=== PATIENT | female | born 1985 | race African-American/Black ===

== ENCOUNTER 2016-09-23 18:10 | Emergency (ER) | payer MEDICAID ==
[2016-09-23 18:41] VITALS: BP 113/77
--- NOTE | 2016-09-23 19:16 | UC ---
Abdominal Pain Female HPI - HPI Summary HPI Summary: The patient comes in today for: 1. Abdominal pain: Onset: One week. Palliative/provocative: Sexual activity makes it worse. Rest makes it better. Quality: Ache pain. Region: Epigastric. Severity: 8/10 but she looks more like 5/10 Time: Comes and goes. Associated symptoms: Vaginal discharge: Present. Previous "bacterial infection" causing the same symptoms: This was 10 months. She was treated with metronidazole "2 pills a day for 7 days." This got rid of the "infection." Fevers: None. Dysuria: None. Hematuria: None. Urinary frequency: None. Urinary urgency: None. * - History of Current Complaint Chief Complaint: UCGU Stated Complaint: ABDOMINAL PAIN Time Seen by Provider: 09/23/16 19:08 Hx Obtained From: Patient, Family/Field Sales Engineer Hx Last Menstrual Period: 09/09/16 ?: No Allergies/Adverse Reactions: Allergies Allergy/AdvReac Type Severity Reaction Status Date / Time Shellfish Allergy Allergy Intermediate Hives/Diff. Verified 09/23/16 18:41 Breathing/I tching Home Medications: Home Medications Ibuprofen [Ibuprofen 200 MG] 800 mg PO PRN 09/23/16 [History] PMH/Surg Hx/FS Hx/Imm Hx Previously Healthy: Yes Endocrine History Of: Denies: Diabetes, Thyroid Disease, Hyperthyroidism, Hypothyroidism, Dyslipidemia Cardiovascular History Of: Denies: Cardiac Disorders, Hypertension, Pacemaker/ICD, Myocardial Infarction , Congestive Heart Failure, Atrial Fibrillation, Deep Vein Thrombosis, Bleeding Disorders Respiratory History Of: Denies: COPD, Asthma, Bronchitis, Pneumonia, Pulmonary Embolism GI/ History Of: Denies: Gastroesophageal Reflux, Ulcer, Gastrointestinal Bleed, Gall Bladder Disease, Kidney Stones, Diverticulitis, Renal Disease, Urosepsis Neurological History Of: Denies: TIA, CVA, Dementia, Seizures, Migraine Psychological History Of: Denies: Anxiety, Depression, Bipolar Disorder, Schizophrenia, Post Traumatic Stress Disorder Cancer History Of: Denies: Lung Cancer, Colorectal Cancer, Breast Cancer, Prostate Cancer, Cervical Cancer Other History Of: Negative For: HIV, Hepatitis B, Hepatitis C, Anticoagulant Therapy - Surgical History Surgical History: None - Family History Known Family History: Positive: Hypertension Negative: Cardiac Disease - Social History Occupation: Unemployed Alcohol Use: None Substance Use Type: None Smoking Status (MU): Never Smoked Tobacco Review of Systems Constitutional: Negative Skin: Negative Eyes: Negative ENT: Negative Respiratory: Negative Cardiovascular: Negative Gastrointestinal: Abdominal Pain Genitourinary: Negative All Other Systems Reviewed And Are Negative: Yes Physical Exam Triage Information Reviewed: Yes Appearance: Well-Appearing, No Pain Distress, Well-Nourished Vital Signs: Initial Vital Signs Temp 99.6 F 09/23/16 18:34 Pulse 86 09/23/16 18:34 Resp 16 09/23/16 18:34 BP 113/77 09/23/16 18:34 Pulse Ox 100 09/23/16 18:34 Vital Signs Reviewed: Yes Eyes: Positive: Conjunctiva Clear. Negative: Discharge ENT: Positive: Hearing grossly normal. Negative: Pharyngeal erythema, Nasal congestion, Nasal drainage, TM bulging, TM dull, TM red, Tonsillar swelling, Tonsillar exudate Dental: Negative: Gross Decay/Caries @, Dental Fracture @ Neck: Positive: Supple, Nontender, No Lymphadenopathy. Negative: Nuchal Rigidity Respiratory: Positive: Chest non-tender, Lungs clear, No respiratory distress, No accessory muscle use. Negative: Crackles, Wheezing Cardiovascular: Positive: RRR, No Murmur Abdomen Description: Positive: No Organomegaly, Soft, Other: - She has no rebound tenderness nor percussion tenderness. The most tender area is the suprapubic area.. Negative: Nontender, Distended, Guarding, Peritoneal Signs Musculoskeletal: Positive: Strength Intact, ROM Intact, No Edema Neurological: Positive: Alert, Muscle Tone Normal Psychological: Positive: Age Appropriate Behavior, Consolable Skin: Negative: rashes, breakdown UC Physical Exam Vital Signs On Initial Exam: Initial Vitals Temp Pulse Resp BP Pulse Ox 99.6 F 86 16 113/77 100 09/23/16 18:34 09/23/16 18:34 09/23/16 18:34 09/23/16 18:34 09/23/16 18:34 - Genitalia Exam Female Genitourinary: Normal External Exam - Pelvic: External: no lesions. Vaginal: Slightly thick whitish material, along the cuenca of the vagina and also on the cervix. No bleeding or masses/lesions. Bimanual: There is no adnexal masses or tenderness. NO bladder wall tenderness. There is cervical motion tenderness. Diagnostics - Laboratory Diagnostic Studies Completed/Ordered: Urine screen: Specific gravity: 1.010. WBC: negative. Nitrite: negative. Blood: negative. Protein: negative. Glucose: negative. Abd Pain Female Course/Dx - Course Course Of Treatment: The patient was told that I don't know for sure what is causing her abdominal/pelvic. pain. The patient was also told that there are many causes for abdomian/pelvic pain--. some which are benign and some which are life-threatening. Furthermore, it was. mentioned that the life- threatening causes of abdominal/pelvic pain can present with. minimal, atypical , or even no symptoms. Becasue of these facts and the fact. that we don't have here all the testing methods commonly used to assess abdominal/pelvic. pain, and their timely resuts, my recommendation is for the patient to go to. the [facility] ([facility] [place]. The patient did not want to do this, but wanted to just treat her problem with metronidazole as for bacteral vaginosis. She was told that if she is not going to the ER, she should at least reconsider if she gets worse while on treatment. - Differential Dx/Diagnosis Provider Diagnoses: Abdominal/pelvic pain,. Bacterial vaginosis Discharge - Discharge Plan Condition: Stable Disposition: HOME Patient Education Materials: Bacterial Vaginosis (ED), Abdominal Pain (ED), Pelvic Pain in Women (ED) Referrals: No Primary Care Phys,NOPCP [Primary Care Provider] - As Soon As Possible ( Please see your primary care provider or PHOTOGRAPHY EDITOR provider as soon as you can for re-evaluation. If you get worse, please go to the ER.)
== END 2016-09-23 20:11 | disposition home or self-care (01) ==
LOC: UCEAST 18:10
DX: R10.13 Epigastric pain (principal); R10.2 Pelvic and perineal pain; N76.0 Acute vaginitis
CPT/HCPCS: 81002; 87480; 87491; 87510; 87591; 87661; 99202; G0463

== ENCOUNTER 2016-10-04 15:00 | Emergency (ER) | payer MEDICAID ==
[2016-10-04 16:47] LABS: Hematocrit 40 % (35-47); Hemoglobin 12.9 g/dl (12.0-16.0); Mean Corpuscular HGB Conc 33 g/dl (31-36); Mean Corpuscular Hemoglobin 28 pg (27-31); Mean Corpuscular Volume 87 fL (80-97); Mean Platelet Volume 9 um3 (7.4-10.4); Red Blood Count 4.54 10^6/ul (4.0-5.4); Red Cell Distribution Width 12 % (10.5-15); White Blood Count 8.6 10^3/ul (3.5-10.8)
[2016-10-04 17:00] LABS: ALT 10 U/L (7-52); AST 15 U/L (13-39); Albumin 4.5 g/dL (3.2-5.2); Alkaline Phosphatase 65 U/L (34-104); Anion Gap 6 mmol/L (2-11); BUN/Creatinine Ratio 13.7 (8-20); Blood Urea Nitrogen 10 mg/dL (6-24); CO2 Carbon Dioxide 27 mmol/L (22-32); Calcium 9.6 mg/dL (8.6-10.3); Chloride 105 mmol/L (101-111); EGFR African American 119.6 (>60); Globulin 3.9 g/dL (2-4); Glucose 105 mg/dL (70-100); Lipase 27 U/L (11.0-82.0); Potassium 3.6 mmol/L (3.5-5.0); Sodium 138 mmol/L (133-145); Total Protein 8.4 g/dL (6.4-8.9)
[2016-10-04 17:16] LABS: Urine Bacteria Absent (Absent); Urine Bilirubin Negative (Negative); Urine Glucose Negative (Negative); Urine Nitrite Negative (Negative)
[2016-10-04] MEDS ORDERED: Ibuprofen TAB* 600 MG PO ONE (18:20)
[2016-10-04] MEDS ORDERED: Ondansetron INJ* 2 MG/ML VIAL IV ONE (18:52)
[2016-10-04] MEDS ORDERED: Morphine INJ* 4 MG/ML 1 ML CARPUJECT IV ONE ×3 (18:52→22:55)
--- NOTE | 2016-10-04 20:20 | RAD ---
Indication: Right flank pain, costovertebral angle tenderness Real-time sonography of the kidneys was performed. The right kidney measures 11.2 x 4.9 x 4.9 cm. No hydronephrosis is noted. IMPRESSION: NO HYDRONEPHROSIS OF THE RIGHT KIDNEY IS NOTED.
--- NOTE | 2016-10-04 20:23 | RAD ---
Indication: Right adnexal pain, right abdominal pain. Real-time sonography of the pelvis was performed utilizing endovaginal technique. Endovaginally the uterus measures 8.1 x 4.8 x 5.7 cm. Myomatous changes are noted. No discrete myoma is noted. Endometrial echo measures 7 mm. Right ovary measures 2.3 x 1.2 x 3.1 cm. Left ovary measures 2.3 x 2.0 x 2.1 cm. Doppler interrogation demonstrates flow in both ovaries. Doppler interrogation also demonstrates multiple enlarged vascular structures in both adnexa. Possibility of pelvic congestion syndrome should BE considered. IMPRESSION: Likely myomatous changes. No adnexal masses are noted. I cannot exclude pelvic congestion syndrome.
[2016-10-04] MEDS ORDERED: Iohexol 300* (CONTRAST) 10 ML SDV IV ONE (22:48)
[2016-10-04] MEDS ORDERED: Morphine INJ* 10 MG/ML 1 ML CARPUJECT IV ONE (22:55)
[2016-10-05 05:49] VITALS: BP 94/55
--- NOTE | 2016-10-05 08:50 | RAD ---
Indication: Right lower quadrant tenderness. CT of the abdomen and pelvis was performed after oral and IV contrast administration. Coronal and sagittal reconstructed images were obtained. Administered 91.0 ml of OMNIPAQUE 300 mgi/ml was given according to hospital protocol. The lung bases demonstrate no pleural fluid, nodules or masses. Heart is of normal size without evidence of pericardial effusion. Liver is normal in size. There is a mass in the right lobe of liver which appears hypervascular. This measures approximately 4.9 cm in length x 5.7 cm in width x 4.9 cm in AP dimension. On the delayed images this becomes isointense to liver. There is suggestion of a low density central area may represent a central scar. This may represent focal nodular hyperplasia. Lesion in the left lobe of liver measures up to 2.8 cm and demonstrates progressive peripheral enhancement. This may represent a hemangioma. Additional low density lesion is noted in the right lobe of liver measuring up to 7 mm in the posterior segment of the right lobe of the liver. These findings are all nonspecific and further evaluation with MRI of the liver with hepatocellular agent is suggested. No intrahepatic duct dilatation is noted. The gallbladder demonstrates no calcified gallstones. No pericholecystic fluid or wall thickening is identified. Common duct is not dilated. Pancreas demonstrates no mass or pancreatic duct dilatation. Spleen is normal in size. No adrenal lesions are noted. The kidneys demonstrate symmetric nephrograms without hydronephrosis. Low density lesion in the midportion of the kidney likely represents a cyst measuring up to 15 mm.. No retroperitoneal lymphadenopathy is noted. No dilated loops of bowel are noted. CT of the pelvis demonstrates no retroperitoneal or pelvic lymphadenopathy. No hernias are noted. The appendix is visualized and is normal in caliber and appears to fill with contrast. The uterus demonstrates heterogeneous density which may represent myomatous changes. No adnexal masses are noted. The urinary bladder is unremarkable. IMPRESSION: NORMAL APPENDIX. LESIONS IN THE LIVER WHICH ARE HYPERVASCULAR IN THE RIGHT LOBE WITH A CENTRAL SCAR. THIS MAY REPRESENT FOCAL NODULAR HYPERPLASIA. ADDITIONAL 2.8 CM LESION IN THE PERIPHERY OF THE LEFT LOBE IS NOTED WELL ADDITIONAL LOW DENSITY LESIONS IN THE INFERIOR RIGHT LOBE OF LIVER. THESE MAY REPRESENT HEMANGIOMAS. TECHNICALLY THESE ARE INDETERMINANT AND CORRELATION WITH MRI OF THE LIVER WITH HEPATOCELLULAR AGENT IS SUGGESTED. LIKELY MYOMATOUS CHANGES OF THE UTERUS.
--- NOTE | 2016-10-05 23:07 | ED ---
Kayla Odell Anna, scribed for Jamar Deal MD on 10/04/16 at 1547 . Abdominal Pain/Female - HPI Summary HPI Summary: Patient is a 31 y/o female coming to [facility] presenting with constant, lower, right-sided abdominal pain that began two days ago. The pain is described as feeling like contractions which radiate to her back. She additionally reports vaginal bleeding and nausea. Denies fever, sweats, chills, urinary symptoms, hx of ovarian cysts, hx of kidney stones, or hx of kidney infection. Per triage notes, the patient describes the severity of the symptoms as 9/10. LNMP was 2016. Second miscarriage 09/09/2016. D & C. She had pain during the miscarriage but not after. - History of Current Complaint Chief Complaint: EDAbdPain Stated Complaint: LOWER ABD PAIN Time Seen by Provider: 10/04/16 15:32 Hx Obtained From: Patient, Family/Advertising Agency Manager - Accompanied by brother and Hx Last Menstrual Period: 09/09/16 Onset/Duration: Lasting Days, Still Present Pain Intensity: 9 Pain Scale Used: 0-10 Numeric Allergies/Adverse Reactions: Allergies Allergy/AdvReac Type Severity Reaction Status Date / Time Shellfish Allergy Allergy Intermediate Hives/Diff. Verified 10/04/16 15:03 Breathing/I tching PMH/Surg Hx/FS Hx/Imm Hx Endocrine/Hematology History: Denies: Hx Anticoagulant Therapy, Hx Diabetes, Hx Thyroid Disease Cardiovascular History: Denies: Hx Congestive Heart Failure, Hx Deep Vein Thrombosis, Hx Hypertension , Hx Myocardial Infarction, Hx Pacemaker/ICD Respiratory History: Denies: Hx Asthma, Hx Chronic Obstructive Pulmonary Disease (COPD), Hx Lung Cancer, Hx Pneumonia, Hx Pulmonary Embolism GI History: Denies: Hx Gall Bladder Disease, Hx Gastrointestinal Bleed, Hx Ulcer, Hx Urosepsis History: Denies: Hx Kidney Stones, Hx Renal Disease Neurological History: Denies: Hx Dementia, Hx Migraine, Hx Seizures, Hx Transient Ischemic Attacks (TIA) Psychiatric History: Denies: Hx Anxiety, Hx Depression, Hx Schizophrenia, Hx Bipolar Disorder Infectious Disease History: No Infectious Disease History: Denies: Traveled Outside the [place] in Last 30 Days - Family History Known Family History: Positive: Hypertension Negative: Cardiac Disease - Social History Alcohol Use: None Substance Use Type: Reports: None Smoking Status (MU): Never Smoked Tobacco Review of Systems Negative: Fever, Chills Negative: Erythema Negative: Sore Throat Negative: Chest Pain Negative: Shortness Of Breath, Cough Positive: Abdominal Pain, Nausea. Negative: Vomiting Positive: other - vaginal bleeding. Negative: dysuria, hematuria Negative: Myalgia, Edema Negative: Rash Neurological: Other - Denies dizziness All Other Systems Reviewed And Are Negative: Yes Physical Exam - Summary Physical Exam Summary: Constitutional: Well-developed, Well-nourished, Alert. (-) Distressed Skin: Warm, Dry HENT: Normocephalic; Atraumatic Eyes: Conjunctiva normal Neck: Musculoskeletal ROM normal neck. (-) JVD, (-) Stridor, (-) Tracheal deviation Cardio: Rhythm regular, rate normal, Heart sounds normal; Intact distal pulses; The pedal pulses are 2+ and symmetric. Radial pulses are 2+ and symmetric. (-) Murmur Pulmonary/Chest wall: Effort normal. (-) Respiratory distress, (-) Wheezes, (-) Rales Abd: Soft, Right adnexal tenderness, ~(-) Distension, (-) Guarding, (-) Rebound Musculoskeletal: (-) Edema Lymph: (-) Cervical adenopathy Neuro: Alert, Oriented x3 Psych: Mood and affect Normal Triage Information Reviewed: Yes Vital Signs On Initial Exam: Initial Vitals Temp Pulse Resp BP Pulse Ox 98.7 F 103 16 126/73 100 10/04/16 15:04 10/04/16 15:04 10/04/16 15:04 10/04/16 15:04 10/04/16 15:04 Vital Signs Reviewed: Yes Diagnostics - Vital Signs Vital Signs Temp Pulse Resp BP Pulse Ox 10/04/16 15:04 98.7 F 103 16 126/73 100 - Laboratory Result Diagrams: 10/04/16 16:35 10/04/16 16:35 Lab Statement: Any lab studies that have been ordered have been reviewed, and results considered in the medical decision making process. - Ultrasound No standard instances Ultrasound Interpretation: Positive (See Comments) Ultrasound Interpretation Completed By: Radiologist - Transvaginal US IMPRESSION : Likely myomatous changes. No adnexal masses are noted. I cannot exclude pelvic congestion syndrome. - Additional Comments Diagnostic Additional Comments: Renal US interpreted by radiologist. IMPRESSION: NO HYDRONEPHROSIS OF THE RIGHT KIDNEY IS NOTED. Re-Evaluation - Re-Evaluation First Eval Re-Evaluation Time: 21:44 Change: Improved Comment: Pt says the pain is somewhat alleviated by the morphine. Discussed results and plan of care with patient. Abdominal Pain Fem Course/Dx - Course Course Of Treatment: Patient is a 31 y/o female coming to [facility] presenting with constant, lower, right-sided abdominal pain that began two days ago. The pain is described as feeling like contractions which radiate to her back. She additionally reports vaginal bleeding and nausea. Denies fever, sweats, chills, urinary symptoms, hx of ovarian cysts, hx of kidney stones, or hx of kidney infection. Renal US reveals no hydronephrosis of the right kidney. Transvaginal US reveals no adnexal masses. Patient will be signed out to Dr. Rachel pending CT. - Diagnoses Provider Diagnoses: RLQ abdominal pain Discharge - Discharge Plan Condition: Stable Disposition: OTHER Discharge Disposition Comment: Signed out to Dr. Rachel pending results of CT Referrals: No Primary Care Phys,NOPCP [Primary Care Provider] - The documentation as recorded by the Kayla jung Anna accurately reflects the service I personally performed and the decisions made by me, Jamar Deal MD.
--- NOTE | 2016-12-12 23:15 | ED ---
Laurel Odell Janilya, scribed for Freeman Rachel MD on 10/05/16 at 0047 . Course/Dx - Diagnoses Provider Diagnoses: Abdominal pain Diagnostics - Vital Signs Vital Signs Temp Pulse Resp BP Pulse Ox 10/04/16 23:30 68 18 94/53 100 10/04/16 23:21 18 10/04/16 22:00 70 18 106/79 100 10/04/16 21:00 75 18 103/67 98 10/04/16 20:22 18 10/04/16 20:21 73 18 96/63 99 10/04/16 19:14 20 10/04/16 15:04 98.7 F 103 16 126/73 100 - Laboratory Lab Results: Lab Results 10/04/16 10/04/16 10/04/16 Range/Units 16:35 16:35 16:50 WBC 8.6 (3.5-10.8) 10^3/ul RBC 4.54 (4.0-5.4) 10^6/ul Hgb 12.9 (12.0-16.0) g/dl Hct 40 (35-47) % MCV 87 (80-97) fL MCH 28 (27-31) pg MCHC 33 (31-36) g/dl RDW 12 (10.5-15) % Plt Count 250 (150-450) 10^3/ul MPV 9 (7.4-10.4) um3 Neut % (Auto) 63.9 (38-83) % Lymph % (Auto) 26.1 (25-47) % [place] % (Auto) 8.1 (1-9) % Eos % (Auto) 1.5 (0-6) % Baso % (Auto) 0.4 (0-2) % Absolute Neuts (auto) 5.5 (1.5-7.7) 10^3/ul Absolute Lymphs (auto) 2.2 (1.0-4.8) 10^3/ul Absolute Monos (auto) 0.7 (0-0.8) 10^3/ul Absolute Eos (auto) 0.1 (0-0.6) 10^3/ul Absolute Basos (auto) 0 (0-0.2) 10^3/ul Absolute Nucleated RBC 0.01 10^3/ul Nucleated RBC % 0.1 Sodium 138 (133-145) mmol/L Potassium 3.6 (3.5-5.0) mmol/L Chloride 105 (101-111) mmol/L Carbon Dioxide 27 (22-32) mmol/L Anion Gap 6 (2-11) mmol/L BUN 10 (6-24) mg/dL Creatinine 0.73 (0.51-0.95) mg/dL Est GFR ( Amer) 119.6 (>60) Est GFR (Non-Af Amer) 93.0 (>60) BUN/Creatinine Ratio 13.7 (8-20) Glucose 105 H (70-100) mg/dL Calcium 9.6 (8.6-10.3) mg/dL Total Bilirubin 0.40 (0.2-1.0) mg/dL AST 15 (13-39) U/L ALT 10 (7-52) U/L Alkaline Phosphatase 65 (34-104) U/L Total Protein 8.4 (6.4-8.9) g/dL Albumin 4.5 (3.2-5.2) g/dL Globulin 3.9 (2-4) g/dL Albumin/Globulin Ratio 1.2 (1-3) Lipase 27 (11.0-82.0) U/L Beta HCG, Quant < 0.60 mIU/mL Urine Color Yellow Urine Appearance Clear Urine pH 5.0 (5-9) Ur Specific [place] 1.030 (1.010-1.030) Urine Protein Negative (Negative) Urine Ketones Negative (Negative) Urine Blood 3+ H (Negative) Urine Nitrate Negative (Negative) Urine Bilirubin Negative (Negative) Urine Urobilinogen Negative (Negative) Ur Leukocyte Esterase Trace H (Negative) Urine WBC (Auto) 1+(6-10/hpf) H (Absent) Urine RBC (Auto) 2+(6-10/hpf) H (Absent) Ur Squamous Epith Cells Present H (Absent) Urine Bacteria Absent (Absent) Urine Glucose Negative (Negative) Urine Ascorbic Acid * H (Negative) Result Diagrams: 10/04/16 16:35 10/04/16 16:35 Lab Statement: Any lab studies that have been ordered have been reviewed, and results considered in the medical decision making process. 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 An indeterminate hepatic lesion in the lateral segment of the left lobe is likely a hemangioma. Normal appendix noted. Slightly prominent heterogeneous uterus, suspect fibroids. No explanation seen for this patient's abdominal pain. - Additional Comments Diagnostic Additional Comments: Renal US interpreted by radiologist. IMPRESSION: NO HYDRONEPHROSIS OF THE RIGHT KIDNEY IS NOTED. Discharge - Discharge Plan Condition: Stable Disposition: HOME Patient Education Materials: Abdominal Pain (ED) Referrals: No Primary Care Phys,NOPCP [Primary Care Provider] - Additional Instructions: Follow up with your primary care provider. The documentation as recorded by the Laurel jung Janilya accurately reflects the service I personally performed and the decisions made by me, Freeman Rachel MD.
== END 2016-10-05 01:50 | disposition home or self-care (01) ==
LOC: ED 15:00
DX: R10.31 Right lower quadrant pain (principal)
CPT/HCPCS: 36415; 74177; 76775; 76830; 80053; 81003; 81015; 83690; 84702; 85025; 87086; 96374; 96375; 99284; A9270-GY; J2270; J2405; Q9967

== ENCOUNTER 2016-10-07 22:16 | Emergency (ER) | payer MEDICAID ==
[2016-10-07 23:25] LABS: Hematocrit 34 % (35-47); Mean Corpuscular HGB Conc 32 g/dl (31-36); Mean Corpuscular Hemoglobin 28 pg (27-31); Mean Corpuscular Volume 87 fL (80-97); Mean Platelet Volume 9 um3 (7.4-10.4); Red Blood Count 3.91 10^6/ul (4.0-5.4); Red Cell Distribution Width 12 % (10.5-15); White Blood Count 6.8 10^3/ul (3.5-10.8)
[2016-10-07 23:40] LABS: Albumin 3.9 g/dL (3.2-5.2); BUN/Creatinine Ratio 19.4 (8-20); C Reactive Protein 1.28 mg/L (< 5.00); Calcium 9.1 mg/dL (8.6-10.3); EGFR African American 144.4 (>60); EGFR Non-African American 112.3 (>60); Globulin 3.1 g/dL (2-4); Potassium 3.8 mmol/L (3.5-5.0); Total Bilirubin 0.3 mg/dL (0.2-1.0)
[2016-10-07] MEDS ORDERED: oxyCODONE/Acetamin 5/325 MG* TAB PO ONE (23:59)
[2016-10-08 00:54] VITALS: BP 112/58
--- NOTE | 2016-10-08 07:45 | RAD ---
HISTORY: Right upper quadrant pain COMPARISONS: CT dated October 05, 2016 TECHNIQUE: Multiple transverse and longitudinal ultrasound images were obtained of the right upper quadrant of the abdomen using grayscale and color Doppler imaging. FINDINGS: LIVER: Again noted is a mass of the left lobe of liver measuring 3 x 2.4 x 2.4 cm. This is homogeneously hyperechoic and suggestive of a hemangioma. There is a 5.2 x 4.2 x 5.8 cm isoechoic lesion appears to correspond to suspected focal nodular hyperplasia. There is a 1.2 x 0.8 x 1 cm hyperechoic lesion suggestive of hemangioma. These lesions are seen on the previous CT scan. There is normal hepatopedal flow of the portal vein on Doppler imaging. BILIARY TREE: There is no intrahepatic or extrahepatic biliary dilatation. The common duct measures 0.6 cm. GALLBLADDER: The gallbladder is well-visualized. There is no cholelithiasis, gallbladder wall thickening, pericholecystic fluid, or sonographic Montes sign. PANCREAS: The head of the pancreas is unremarkable. The tail of the pancreas is not well visualized secondary to overlying bowel gas. RIGHT KIDNEY: There is a complex cystic lesion of the midpole the right kidney measuring 1.7 x 1.1 x 0.8 cm in size with a thick internal septation. This corresponds to a cyst noted on CT, but is incompletely evaluated. There is no hydronephrosis or nephrolithiasis. The right kidney measures 10.4 x 4.8 x 5.5 cm. AORTA AND IVC: The aorta and IVC are unremarkable. FLUID: There are no pleural effusions. There is no free fluid within the hepatorenal recess. OTHER FINDINGS: None. IMPRESSION: 1. AGAIN NOTED ARE MULTIPLE HEPATIC PARENCHYMAL LESIONS AND A COMPLEX CYST OF THE RIGHT KIDNEY. GIVEN THE ABOVE FINDINGS, RECOMMEND FURTHER EVALUATION WITH MRI OF THE ABDOMEN, RECOMMENDED ON THE PREVIOUS CT SCAN. 2. NO ACUTE SONOGRAPHIC PATHOLOGY OF THE VISUALIZED PORTION OF THE ABDOMEN.
--- NOTE | 2016-10-09 00:25 | ED ---
Jodi Odell Matthew, scribed for Demetri Mukherjee MD on 10/07/16 at 2332 . Abdominal Pain/Female - HPI Summary HPI Summary: A 31 y/o female presents to the ED with constant RUQ abdominal pain since 5 days ago. The pain is described as cramping and rated 8/10 in severity. The patient was here on 10/05 for similar symptoms; however the pain has moved from the lower quadrant to the upper quadrant. The patient denies nausea, vomiting, and diarrhea. She's been having normal BM. - History of Current Complaint Chief Complaint: EDAbdPain Stated Complaint: ABD PAIN Time Seen by Provider: 10/07/16 22:27 Hx Obtained From: Patient Hx Last Menstrual Period: 09/09/16 ?: No Onset/Duration: Gradual Onset, Lasting Days, Still Present Timing: Constant Severity Initially: Moderate Severity Currently: Moderate Pain Intensity: 8 Pain Scale Used: 0-10 Numeric Location: Discrete At: RUQ Radiates: No Character: Cramping Associated Signs and Symptoms: Negative: Nausea, Vomiting, Diarrhea Allergies/Adverse Reactions: Allergies Allergy/AdvReac Type Severity Reaction Status Date / Time Shellfish Allergy Allergy Intermediate Hives/Diff. Verified 10/08/16 13:27 Breathing/I tching PMH/Surg Hx/FS Hx/Imm Hx Endocrine/Hematology History: Denies: Hx Anticoagulant Therapy, Hx Diabetes, Hx Thyroid Disease Cardiovascular History: Denies: Hx Congestive Heart Failure, Hx Deep Vein Thrombosis, Hx Hypertension , Hx Myocardial Infarction, Hx Pacemaker/ICD Respiratory History: Denies: Hx Asthma, Hx Chronic Obstructive Pulmonary Disease (COPD), Hx Lung Cancer, Hx Pneumonia, Hx Pulmonary Embolism GI History: Denies: Hx Gall Bladder Disease, Hx Gastrointestinal Bleed, Hx Ulcer, Hx Urosepsis History: Denies: Hx Kidney Stones, Hx Renal Disease Neurological History: Denies: Hx Dementia, Hx Migraine, Hx Seizures, Hx Transient Ischemic Attacks (TIA) Psychiatric History: Denies: Hx Anxiety, Hx Depression, Hx Schizophrenia, Hx Bipolar Disorder Infectious Disease History: No Infectious Disease History: Denies: Traveled Outside the [place] in Last 30 Days - Family History Known Family History: Positive: Hypertension Negative: Cardiac Disease - Social History Alcohol Use: None Substance Use Type: Reports: None Smoking Status (MU): Never Smoked Tobacco Review of Systems Constitutional: Negative Eyes: Negative ENT: Negative Cardiovascular: Negative Respiratory: Negative Positive: Abdominal Pain - RUQ. Negative: Vomiting, Diarrhea, Nausea Genitourinary: Negative Musculoskeletal: Negative Skin: Negative Positive: Headache Psychological: Normal All Other Systems Reviewed And Are Negative: Yes Physical Exam Triage Information Reviewed: Yes Vital Signs On Initial Exam: Initial Vitals Temp Pulse Resp BP Pulse Ox 98.4 F 78 16 115/67 100 10/07/16 22:19 10/07/16 22:19 10/07/16 22:19 10/07/16 22:19 10/07/16 22:19 Vital Signs Reviewed: Yes Appearance: Positive: Well-Appearing, No Pain Distress Skin: Positive: Warm, Skin Color Reflects Adequate Perfusion, Dry Head/Face: Positive: Normal Head/Face Inspection Eyes: Positive: EOMI, BRET ENT: Positive: Normal ENT inspection Neck: Positive: Supple, Nontender Respiratory/Lung Sounds: Positive: Clear to Auscultation, Breath Sounds Present Cardiovascular: Positive: RRR Abdomen Description: Positive: Soft, Other: - RUQ tenderness Bowel Sounds: Positive: Present Musculoskeletal: Positive: Normal, Strength/ROM Intact Neurological: Positive: Normal, Sensory/Motor Intact, Alert, Oriented to Person Place, Time Psychiatric: Positive: Normal, Affect/Mood Appropriate Diagnostics - Vital Signs Vital Signs Temp Pulse Resp BP Pulse Ox 10/07/16 22:19 98.4 F 78 16 115/67 100 - Laboratory Lab Results: Lab Results 10/07/16 10/07/16 Range/Units 23:15 23:15 WBC 6.8 (3.5-10.8) 10^3/ul RBC 3.91 L (4.0-5.4) 10^6/ul Hgb 11.0 L (12.0-16.0) g/dl Hct 34 L (35-47) % MCV 87 (80-97) fL MCH 28 (27-31) pg MCHC 32 (31-36) g/dl RDW 12 (10.5-15) % Plt Count 226 (150-450) 10^3/ul MPV 9 (7.4-10.4) um3 Neut % (Auto) 50.5 (38-83) % Lymph % (Auto) 39.6 (25-47) % Dolores % (Auto) 8.4 (1-9) % Eos % (Auto) 1.2 (0-6) % Baso % (Auto) 0.3 (0-2) % Absolute Neuts (auto) 3.4 (1.5-7.7) 10^3/ul Absolute Lymphs (auto) 2.7 (1.0-4.8) 10^3/ul Absolute Monos (auto) 0.6 (0-0.8) 10^3/ul Absolute Eos (auto) 0.1 (0-0.6) 10^3/ul Absolute Basos (auto) 0 (0-0.2) 10^3/ul Absolute Nucleated RBC 0.01 10^3/ul Nucleated RBC % 0.1 Sodium 140 (133-145) mmol/L Potassium 3.8 (3.5-5.0) mmol/L Chloride 105 (101-111) mmol/L Carbon Dioxide 30 (22-32) mmol/L Anion Gap 5 (2-11) mmol/L BUN 12 (6-24) mg/dL Creatinine 0.62 (0.51-0.95) mg/dL Est GFR ( Amer) 144.4 (>60) Est GFR (Non-Af Amer) 112.3 (>60) BUN/Creatinine Ratio 19.4 (8-20) Glucose 107 H (70-100) mg/dL Calcium 9.1 (8.6-10.3) mg/dL Total Bilirubin 0.30 (0.2-1.0) mg/dL AST 15 (13-39) U/L ALT 10 (7-52) U/L Alkaline Phosphatase 58 (34-104) U/L C-Reactive Protein 1.28 (< 5.00) mg/L Total Protein 7.0 (6.4-8.9) g/dL Albumin 3.9 (3.2-5.2) g/dL Globulin 3.1 (2-4) g/dL Albumin/Globulin Ratio 1.3 (1-3) Result Diagrams: 10/07/16 23:15 10/07/16 23:15 Lab Statement: Any lab studies that have been ordered have been reviewed, and results considered in the medical decision making process. Abdominal Pain Fem Course/Dx - Course Course Of Treatment: Cynthia Bartlett presented with RUQ pain for 5 days. She was found to have gallstones but not an acutely inflamed gallbladder. She was trreated symptomatically and recommended F/U. - Diagnoses Provider Diagnoses: Abdominal pain Discharge - Discharge Plan Condition: Stable Disposition: HOME Prescriptions: oxyCODONE/Acetamin 5/325 MG* [Percocet 5/325 TAB*] 1 tab PO Q6H PRN #20 tab MDD 4 PRN Reason: Pain Patient Education Materials: Abdominal Pain (ED) Referrals: [facility] [Outside] - 3 Days Additional Instructions: Please follow-up with your primary care physician in 3 days. The documentation as recorded by the Jodi jung Matthew accurately reflects the service I personally performed and the decisions made by me, Demetri Mukherjee MD.
== END 2016-10-08 00:53 | disposition home or self-care (01) ==
LOC: ED 22:16
DX: R10.11 Right upper quadrant pain (principal)
CPT/HCPCS: 36415; 76705; 80053; 85025; 86140; 99282; A9270-GY

== ENCOUNTER 2016-11-20 11:05 | Emergency (ER) | payer SELFPAY ==
[2016-11-20 11:24] VITALS: BP 102/62
--- NOTE | 2016-11-20 17:31 | UC ---
Catrachita Odell Alok, scribed for Tameka Zamora MD on 11/20/16 at 1224 . Complaint Female HPI - HPI Summary HPI Summary: 31 y/o female presents to the for grayish, fishy smelling vaginal discharge for the last week. Pt states has had repeat hx of bacterial vaginosis, last occurrence two weeks ago. Pt also adds suprapubic discomfort. Pt denies abdominal pain, n/v/d, or painful urination. Pt has no hx of STD's and GPA = 3,1 ,2. - History Of Current Complaint Chief Complaint: UCGU Stated Complaint: LOWER ABD PAIN Time Seen by Provider: 11/20/16 11:44 Hx Obtained From: Patient Hx Last Menstrual Period: 10/27/16 ?: No Onset/Duration: Gradual Onset, Lasting Days, Still Present Timing: Constant Severity Initially: Moderate Severity Currently: Moderate Pain Intensity: 0 Pain Scale Used: 0-10 Numeric Character: Not Applicable Aggravating Factor(s): Nothing Alleviating Factor(s): Nothing Associated Signs And Symptoms: Positive: Vaginal Discharge - "Grayish, fishy smelling". Negative: Fever, Nausea, Vomiting(# Of Episodes =), Genital Blisters - Allergies/Home Medications Allergies/Adverse Reactions: Allergies Allergy/AdvReac Type Severity Reaction Status Date / Time Shellfish Allergy Allergy Intermediate Hives/Diff. Verified 11/20/16 11:18 Breathing/I tching Home Medications: Home Medications Multiple Vitamins W/ Minerals [Hair Skin and Nails Formu] 1 tab PO DAILY [History Confirmed 11/20/16] PMH/Surg Hx/FS Hx/Imm Hx Previously Healthy: Yes Endocrine History Of: Denies: Diabetes, Thyroid Disease, Hyperthyroidism, Hypothyroidism, Dyslipidemia Cardiovascular History Of: Denies: Cardiac Disorders, Hypertension, Pacemaker/ICD, Myocardial Infarction , Congestive Heart Failure, Atrial Fibrillation, Deep Vein Thrombosis, Bleeding Disorders Respiratory History Of: Denies: COPD, Asthma, Bronchitis, Pneumonia, Pulmonary Embolism GI/ History Of: Denies: Gastroesophageal Reflux, Ulcer, Gastrointestinal Bleed, Gall Bladder Disease, Kidney Stones, Diverticulitis, Renal Disease, Urosepsis Neurological History Of: Denies: TIA, CVA, Dementia, Seizures, Migraine Psychological History Of: Denies: Anxiety, Depression, Bipolar Disorder, Schizophrenia, Post Traumatic Stress Disorder Cancer History Of: Denies: Lung Cancer, Colorectal Cancer, Breast Cancer, Prostate Cancer, Cervical Cancer Other History Of: Negative For: HIV, Hepatitis B, Hepatitis C, Anticoagulant Therapy - Surgical History Surgical History: Yes Surgery Procedure, Year, and Place: D & C - 2013. LOW ABD PROCEDURE - UTERINE BLEEDING - EMBOLIZATION - ( CLEARED FOR MRI - NO METAL PER DR BUENO - REVIEWED RECENT CT ABD/PELVIS) - Family History Known Family History: Positive: Hypertension Negative: Cardiac Disease - Social History Lives: With Family Alcohol Use: None Substance Use Type: None Smoking Status (MU): Never Smoked Tobacco Review of Systems Constitutional: Negative Gastrointestinal: Abdominal Pain - suprapubic discomfort Genitourinary: Other - Vaginal discharge "Grayish, fishy smelling" All Other Systems Reviewed And Are Negative: Yes Physical Exam Triage Information Reviewed: Yes Appearance: Well-Appearing, Well-Nourished, Pain Distress Vital Signs: Initial Vital Signs Temp 98.5 F 11/20/16 11:20 Pulse 87 11/20/16 11:20 Resp 16 11/20/16 11:20 BP 102/62 11/20/16 11:20 Pulse Ox 100 11/20/16 11:20 Vital Signs Reviewed: Yes Eyes: Positive: Conjunctiva Clear ENT: Positive: Normal ENT inspection Neck: Positive: Supple Respiratory: Positive: Lungs clear, Normal breath sounds, No respiratory distress Cardiovascular: Positive: RRR, No Murmur, Pulses Normal, Brisk Capillary Refill Abdomen Description: Positive: Nontender, No Organomegaly, Soft, Other: - Pelvic exam: Moderate white to murry vaginal discharge. Cervix long and cold. Adnexa nontender with no masses. Uterus normal size and nontender.. Negative: CVA Tenderness (R), CVA Tenderness (L), Distended, Guarding, Hepatomegaly, McBurney's Point Tenderness, Peritoneal Signs, Pulsatile Mass, Splenomegaly Bowel Sounds: Positive: Present Musculoskeletal: Positive: Strength Intact, ROM Intact Neurological: Positive: Alert, Muscle Tone Normal Psychological Exam: Normal Skin Exam: Normal Complaint Female Dx - Course Course Of Treatment: POC Urine Blood: Negative, POC U Leukocyte Esteras: Negative, Urine Test: Negative - Differential Dx/Diagnosis Differential Diagnosis/HQI/PQRI: Cervicitis, Other - BV, ureaplasma Provider Diagnoses: vaginitis Discharge - Discharge Plan Condition: Stable Disposition: HOME Prescriptions: Metronidazole (Topical) [Metrogel] 37.5 mg VAGINAL BEDTIME #1 tube Patient Education Materials: Bacterial Vaginosis (ED) Referrals: Royce Mckeon MD [Medical Doctor] - 5 Days Sebastian Noriega MD [Primary Care Provider] - Additional Instructions: We have treated you empirically for bacterial vaginosis (BV) which is caused by garnerella. We have also sent tests for mycoplasma hominis, ureaplasma, gonorrhea, chlamydia, trichomonas and a general genital culture. We will notify you if you need further treatment based on these results. We have referred you to [facility] for care, since you have have recurrent infections. Your urine dipstick test was normal. Your test was negative. Return to urgent care if you have any new or worsening symptoms. The documentation as recorded by the Catrachita jung Alok accurately reflects the service I personally performed and the decisions made by me, Tameka Zamora MD.
[2016-11-24 15:52] LABS: Ureaplasma Source ENDOCERVICAL; Ureaplasma parvum PCR Negative; Ureaplasma urealyticum PCR Positive
[2016-11-24 15:58] LABS: Mycoplasma hominis Result Negative; Mycoplasma hominis Source ENDOCERVICAL
== END 2016-11-20 12:58 | disposition home or self-care (01) ==
LOC: UCEAST 11:05
DX: N76.0 Acute vaginitis (principal); Z32.02 Encounter for pregnancy test, result negative
CPT/HCPCS: 81003; 84702; 87070; 87077; 87480; 87491; 87510; 87591; 87661; 87798; 99212; G0463

== ENCOUNTER 2016-12-07 09:38 | Emergency (ER) | payer SELFPAY ==
[2016-12-07 09:55] VITALS: BP 101/59
[2016-12-07] MEDS ORDERED: Fluorescein Sodium TOPICAL* 1 MG TEST OPHTHALMIC ONE (10:19)
[2016-12-07] MEDS ORDERED: Tetracaine 0.5% OPTH.SOL 4 ML* 1 DROP BTL BOTH EYES ONE (10:20)
[2016-12-07] MEDS ORDERED: BSS OPTH.SOL* BTL ONE (10:24)
[2016-12-07] MEDS ORDERED: Fluorescein Sodium TOPICAL* 1 MG TEST ONE (10:25)
[2016-12-07] MEDS ORDERED: Tetracaine 0.5% OPTH.SOL 15ML* BTL ONE (10:26)
[2016-12-07] MEDS ORDERED: Tropicamide 1% OPTH.SOL* BTL BOTH EYES SCH (10:30)
--- NOTE | 2016-12-07 11:14 | ED ---
Catrachita Odell Alok, scribed for Odette Ramirez MD on 12/07/16 at 1029 . Throat Pain/Nasal Congestion - HPI Summary HPI Summary: 31 y/o female presents to the with right eye pain since 0200 this morning. Pt notes eye discharge and sensitivity to light as well as swelling of the right eye. Pt states her eye pain is alleviated somewhat when closing her eyelids but still present. Pt took several drops of Tetrahydrozoline [facility] [employer] with no relief. Pt also notes wearing her regular contact lenses for one hour yesterday. Pt denies any UV light exposure at work. Pt also denies any fever, cough, sore throat, diarrhea, or rash. Pt does however, note gallstones which have been painful since yesterday. Pt has NKDA. - History of Current Complaint Chief Complaint: UCEye Time Seen by Provider: 12/07/16 10:11 Hx Obtained From: Patient Onset/Duration: Gradual Onset, Lasting Hours, Still Present Severity: Moderate Cough: None - Allergies/Home Medications Allergies/Adverse Reactions: Allergies Allergy/AdvReac Type Severity Reaction Status Date / Time Shellfish Allergy Allergy Intermediate Hives/Diff. Verified 11/20/16 11:18 Breathing/I tching PMH/Surg Hx/FS Hx/Imm Hx Endocrine/Hematology History: Denies: Hx Anticoagulant Therapy, Hx Diabetes, Hx Thyroid Disease Cardiovascular History: Denies: Hx Congestive Heart Failure, Hx Deep Vein Thrombosis, Hx Hypertension , Hx Myocardial Infarction, Hx Pacemaker/ICD Respiratory History: Denies: Hx Asthma, Hx Chronic Obstructive Pulmonary Disease (COPD), Hx Lung Cancer, Hx Pneumonia, Hx Pulmonary Embolism GI History: Denies: Hx Gall Bladder Disease, Hx Gastrointestinal Bleed, Hx Ulcer, Hx Urosepsis History: Denies: Hx Kidney Stones, Hx Renal Disease Sensory History: Denies: Hx Hearing Aid Neurological History: Denies: Hx Dementia, Hx Migraine, Hx Seizures, Hx Transient Ischemic Attacks (TIA) Psychiatric History: Denies: Hx Anxiety, Hx Depression, Hx Panic Disorder, Hx Schizophrenia, Hx Bipolar Disorder - Surgical History Surgery Procedure, Year, and Place: D & C - 2013. LOW ABD PROCEDURE - UTERINE BLEEDING - EMBOLIZATION - ( CLEARED FOR MRI - NO METAL PER DR BUENO - REVIEWED RECENT CT ABD/PELVIS) Infectious Disease History: No Infectious Disease History: Denies: Hx Hepatitis, Hx Human Immunodeficiency Virus (HIV), History Other Infectious Disease, Traveled Outside the [place] in Last 30 Days - Family History Known Family History: Positive: Hypertension Negative: Cardiac Disease - Social History Occupation: Employed Full-time Lives: With Family - Alcohol Use: None Substance Use Type: Reports: None Smoking Status (MU): Never Smoked Tobacco Review of Systems Constitutional: Other - as below Negative: Fever Positive: Photophobia, Drainage, Other - Right Eye Pain Negative: Sore Throat Cardiovascular: Negative Negative: Cough Negative: Diarrhea Genitourinary: Negative Musculoskeletal: Negative Negative: Rash Neurological: Negative All Other Systems Reviewed And Are Negative: Yes Physical Exam - Summary Physical Exam Summary: Appearance: Well-Nourished Eye Exam: PERRL. EOMI. Bilaterally photophobic. Funduscopic exam: Grossly normal. Some scleritis. No ulcer. Conjuctiva are ++ erythematous ENT Exam: Normal Respiratory Exam: Normal, no dyspnea, no tachypnea, normal respiratory rate Cardiovascular Exam: Normal Cardiovascular: Heart rate regular, good general skin color, good capillary refill Abdominal Exam: Normal Abdomen Description: Nontender, No Organomegaly, Soft Bowel Sounds: Present Musculoskeletal Exam: Normal Musculoskeletal: Strength Intact Neurological Exam: Normal: nonfocal, grossly intact Psychological Exam: Normal: conversing easily and appropriately Skin Exam: Normal: no visible or reported rash Triage Information Reviewed: Yes Vital Signs On Initial Exam: Initial Vitals Temp Pulse Resp BP Pulse Ox 98.8 F 83 16 101/59 100 12/07/16 09:47 12/07/16 09:47 12/07/16 09:47 12/07/16 09:47 12/07/16 09:47 Vital Signs Reviewed: Yes Diagnostics - Vital Signs Vital Signs Temp Pulse Resp BP Pulse Ox 12/07/16 09:47 98.8 F 83 16 101/59 100 - Laboratory Lab Statement: Any lab studies that have been ordered have been reviewed, and results considered in the medical decision making process. Re-Evaluation - Re-Evaluation First Eval Re-Evaluation Time: 10:54 EENT Course/Dx - Course Course Of Treatment: No new problems in CCC. A little improvement with tetracaine, but still + photophobic. NO DILATING DROPS AVAILABLE. Flourescein - neg ulcer neg sore. Considered below diff dx's. C/w contact overuse syndrome (although she reports only having used them for 1 hour). But some discolored drainage (light yellow), as such will start cipro ggt's. C/n exclude an element of scleritis or episcleritis. Will need to f/u with eye doctor. Denies hx of this in the past. No know autoimmune d/o's. No visual changes recently. Questions answered as posed. Addendum - at discharge, Ms. Bartlett reports that she may be going to the ED for increased "gallbladder pain." She is ambulatory. This was not directly evaluated here. But I did call the ED to advise that she may be going there. - Diagnoses Provider Diagnoses: Conjunctivitis, Contact lens intolerance Discharge - Discharge Plan Condition: Stable Disposition: HOME Prescriptions: Ciprofloxacin 0.3% OPTH.MARY* [Cipro 0.3% Opth*] 2 drop BOTH EYES Q8H #1 btl Patient Education Materials: Conjunctivitis (ED), Photophobia (ED) Referrals: Jose Lema MD [Medical Doctor] - Additional Instructions: Please follow up with Dr. Lema. Seek medical attention for worsening problems in the meantime. The documentation as recorded by the Catrachita jung Alok accurately reflects the service I personally performed and the decisions made by me, Odette Ramirez MD.
== END 2016-12-07 11:04 | disposition home or self-care (01) ==
LOC: UCEAST 09:38
DX: H10.9 Unspecified conjunctivitis (principal)
CPT/HCPCS: 99212; A9270-GY; G0463

== ENCOUNTER 2016-12-07 11:47 | Emergency (ER) | payer SELFPAY ==
[2016-12-07] MEDS ORDERED: Tetracaine 0.5% OPTH.SOL 4 ML* 1 DROP BTL BOTH EYES ONE (12:37)
[2016-12-07 13:14] LABS: Hematocrit 37 % (35-47); Hemoglobin 11.9 g/dl (12.0-16.0); Mean Corpuscular HGB Conc 32 g/dl (31-36); Mean Corpuscular Hemoglobin 28 pg (27-31); Mean Corpuscular Volume 85 fL (80-97); Mean Platelet Volume 9 um3 (7.4-10.4); Red Blood Count 4.31 10^6/ul (4.0-5.4); Red Cell Distribution Width 12 % (10.5-15); White Blood Count 7.2 10^3/ul (3.5-10.8)
[2016-12-07 13:25] LABS: ALT 14 U/L (7-52); AST 16 U/L (13-39); Albumin 4.1 g/dL (3.2-5.2); Alkaline Phosphatase 77 U/L (34-104); Anion Gap 6 mmol/L (2-11); BUN/Creatinine Ratio 15.9 (8-20); Blood Urea Nitrogen 10 mg/dL (6-24); C Reactive Protein < 1.00 mg/L (< 5.00); CO2 Carbon Dioxide 29 mmol/L (22-32); Calcium 9.1 mg/dL (8.6-10.3); Chloride 102 mmol/L (101-111); EGFR African American 141.7 (>60); EGFR Non-African American 110.2 (>60); Globulin 3.2 g/dL (2-4); Glucose 95 mg/dL (70-100); Lipase 15 U/L (11.0-82.0); Potassium 3.3 mmol/L (3.5-5.0); Sodium 137 mmol/L (133-145); Total Protein 7.3 g/dL (6.4-8.9)
[2016-12-07] MEDS ORDERED: HYDROcodone/ACETAMIN 5-325 MG* 1 TAB PO ONE (14:13)
[2016-12-07] MEDS ORDERED: oxyCODONE/Acetamin 5/325 MG* TAB PO ONE (14:22)
[2016-12-07 15:47] VITALS: BP 119/68
--- NOTE | 2016-12-07 18:37 | ED ---
Marychuy Odell SooYoung, scribed for Demetri Mukherjee MD on 12/07/16 at 1210 . Abdominal Pain/Female - HPI Summary HPI Summary: A 31 y/o F presents to ED referred from [facility] [place] with abd pain due to known dx: cholelithiasis. Pain has been worsening over the past few days. Secondary complaint of bilat eye pain. Associated sx: erythamatous around eyes, clear discharge. Pt was given eye drops at [facility] [place] [facility] in ED. - History of Current Complaint Chief Complaint: EDAbdPain Stated Complaint: GALL BLADDER PAIN, EYE INJURY Time Seen by Provider: 12/07/16 12:06 Hx Obtained From: Patient Hx Last Menstrual Period: 10/27/16 Onset/Duration: Lasting Days, Still Present Timing: Constant Severity Currently: Severe Pain Intensity: 10 Pain Scale Used: 0-10 Numeric Allergies/Adverse Reactions: Allergies Allergy/AdvReac Type Severity Reaction Status Date / Time Shellfish Allergy Allergy Intermediate Hives/Diff. Verified 11/20/16 11:18 Breathing/I tching Hydrocodone Allergy Hives Verified 12/07/16 14:30 PMH/Surg Hx/FS Hx/Imm Hx Previously Healthy: No Endocrine/Hematology History: Denies: Hx Anticoagulant Therapy, Hx Diabetes, Hx Thyroid Disease Cardiovascular History: Denies: Hx Congestive Heart Failure, Hx Deep Vein Thrombosis, Hx Hypertension , Hx Myocardial Infarction, Hx Pacemaker/ICD Respiratory History: Denies: Hx Asthma, Hx Chronic Obstructive Pulmonary Disease (COPD), Hx Lung Cancer, Hx Pneumonia, Hx Pulmonary Embolism GI History: Denies: Hx Gall Bladder Disease, Hx Gastrointestinal Bleed, Hx Ulcer, Hx Urosepsis History: Denies: Hx Kidney Stones, Hx Renal Disease Sensory History: Denies: Hx Hearing Aid Neurological History: Denies: Hx Dementia, Hx Migraine, Hx Seizures, Hx Transient Ischemic Attacks (TIA) Psychiatric History: Denies: Hx Anxiety, Hx Depression, Hx Panic Disorder, Hx Schizophrenia, Hx Bipolar Disorder - Surgical History Surgery Procedure, Year, and Place: D & C - 2013. LOW ABD PROCEDURE - UTERINE BLEEDING - EMBOLIZATION - ( CLEARED FOR MRI - NO METAL PER DR BUENO - REVIEWED RECENT CT ABD/PELVIS) Infectious Disease History: No Infectious Disease History: Denies: Hx Hepatitis, Hx Human Immunodeficiency Virus (HIV), History Other Infectious Disease, Traveled Outside the [place] in Last 30 Days - Family History Known Family History: Positive: Hypertension Negative: Cardiac Disease - Social History Occupation: Unemployed Lives: With Family Alcohol Use: None Hx Substance Use: No Substance Use Type: Reports: None Hx Tobacco Use: No Smoking Status (MU): Never Smoked Tobacco Review of Systems Positive: Drainage, Erythema Positive: Abdominal Pain All Other Systems Reviewed And Are Negative: Yes Physical Exam Triage Information Reviewed: Yes Vital Signs On Initial Exam: Initial Vitals Temp Pulse Resp BP Pulse Ox 99.1 F 89 16 114/73 98 12/07/16 11:50 12/07/16 11:50 12/07/16 11:50 12/07/16 11:50 12/07/16 11:50 Vital Signs Reviewed: Yes Appearance: Positive: Well-Appearing, No Pain Distress Skin: Positive: Warm, Skin Color Reflects Adequate Perfusion, Dry Head/Face: Positive: Normal Head/Face Inspection Eyes: Positive: Other: - POS: SCLERA INJECTED, WATERY DISCHARGE ENT: Positive: Normal ENT inspection Neck: Positive: Supple, Nontender Abdomen Description: Positive: Other: - POS: MILD RUQ TENDERNESS Musculoskeletal: Positive: Normal Neurological: Positive: Normal Psychiatric: Positive: Normal, Affect/Mood Appropriate Diagnostics - Vital Signs Vital Signs Temp Pulse Resp BP Pulse Ox 12/07/16 11:50 99.1 F 89 16 114/73 98 - Laboratory Lab Results: Lab Results 12/07/16 12/07/16 12/07/16 Range/Units 13:00 13:00 13:00 WBC 7.2 (3.5-10.8) 10^3/ul RBC 4.31 (4.0-5.4) 10^6/ul Hgb 11.9 L (12.0-16.0) g/dl Hct 37 (35-47) % MCV 85 (80-97) fL MCH 28 (27-31) pg MCHC 32 (31-36) g/dl RDW 12 (10.5-15) % Plt Count 244 (150-450) 10^3/ul MPV 9 (7.4-10.4) um3 Neut % (Auto) 59.2 (38-83) % Lymph % (Auto) 33.0 (25-47) % [place] % (Auto) 6.4 (1-9) % Eos % (Auto) 1.0 (0-6) % Baso % (Auto) 0.4 (0-2) % Absolute Neuts (auto) 4.3 (1.5-7.7) 10^3/ul Absolute Lymphs (auto) 2.4 (1.0-4.8) 10^3/ul Absolute Monos (auto) 0.5 (0-0.8) 10^3/ul Absolute Eos (auto) 0.1 (0-0.6) 10^3/ul Absolute Basos (auto) 0 (0-0.2) 10^3/ul Absolute Nucleated RBC 0.01 10^3/ul Nucleated RBC % 0.1 Sodium 137 (133-145) mmol/L Potassium 3.3 L (3.5-5.0) mmol/L Chloride 102 (101-111) mmol/L Carbon Dioxide 29 (22-32) mmol/L Anion Gap 6 (2-11) mmol/L BUN 10 (6-24) mg/dL Creatinine 0.63 (0.51-0.95) mg/dL Est GFR ( Amer) 141.7 (>60) Est GFR (Non-Af Amer) 110.2 (>60) BUN/Creatinine Ratio 15.9 (8-20) Glucose 95 (70-100) mg/dL Lactic Acid 1.1 (0.5-2.0) mmol/L Calcium 9.1 (8.6-10.3) mg/dL Total Bilirubin 0.50 (0.2-1.0) mg/dL AST 16 (13-39) U/L ALT 14 (7-52) U/L Alkaline Phosphatase 77 (34-104) U/L C-Reactive Protein < 1.00 (< 5.00) mg/L Total Protein 7.3 (6.4-8.9) g/dL Albumin 4.1 (3.2-5.2) g/dL Globulin 3.2 (2-4) g/dL Albumin/Globulin Ratio 1.3 (1-3) Lipase 15 (11.0-82.0) U/L Beta HCG, Quant < 0.60 mIU/mL Result Diagrams: 12/07/16 13:00 12/07/16 13:00 Lab Statement: Any lab studies that have been ordered have been reviewed, and results considered in the medical decision making process. Abdominal Pain Fem Course/Dx - Course Course Of Treatment: There is no evidence for an acute cholecystitis at this time and I will treat her symptomatically and encourage her to F/U. - Diagnoses Provider Diagnoses: Colic, biliary Discharge - Discharge Plan Condition: Stable Disposition: HOME Prescriptions: oxyCODONE/Acetamin 5/325 MG* [Percocet 5/325 TAB*] 1 tab PO Q6H PRN #20 tab MDD 4 PRN Reason: Pain Patient Education Materials: Oxycodone/Acetaminophen (By mouth), Cholecystitis (ED) Referrals: Romeo Valenzuela MD [Medical Doctor] - Sebastian Noriega MD [Primary Care Provider] - Additional Instructions: Follow up with Dr. Valenzuela. Please return to the ED if you experience new or worsening symptoms. The documentation as recorded by the Marychuy jung SooYoung accurately reflects the service I personally performed and the decisions made by me, Demetri Mukherjee MD.
== END 2016-12-07 15:45 | disposition home or self-care (01) ==
LOC: ED 11:47
DX: K80.50 Calculus of bile duct without cholangitis or cholecystitis without obstruction (principal); L53.9 Erythematous condition, unspecified; R10.9 Unspecified abdominal pain
CPT/HCPCS: 36415; 80053; 83605; 83690; 84702; 85025; 86140; 99282; A9270-GY

== ENCOUNTER 2016-12-17 16:42 | Emergency (ER) | payer SELFPAY ==
[2016-12-17 19:37] VITALS: BP 118/75
--- NOTE | 2016-12-17 20:19 | UC ---
Abdominal Pain Female HPI - HPI Summary HPI Summary: The patient comes in today for: 1. Flank/abdominal pain/gallstones--billiary colic: Onset: 1-2 weeks. Palliative/provocative: Laying on her right side makes it better. Quality: "I don't how to explain it." Region: RUQ of the abdomen. Severity: 10/10, but she is not crying. Time: Comes and goes. Associated symptoms: Previous evaluation: She saw her GI doctor ("Luis E" on [facility]) on November 12. She had an MRI which showed the gallstones by her report. She had a CT scan also. This also showed gallstones by her report. She has surgery planned in two weeks to have them removed. She states that she is from [place]. She wants a stronger dose of Percocet. Fevers: None. PCP: Dr. Valenzuela. 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 Verified 12/17/16 17:02 Breathing/I tching Hydrocodone Allergy Hives Verified 12/17/16 17:02 PMH/Surg Hx/FS Hx/Imm Hx Previously Healthy: No Endocrine History Of: Denies: Diabetes, Thyroid Disease, Hyperthyroidism, Hypothyroidism, Dyslipidemia Cardiovascular History Of: Denies: Cardiac Disorders, Hypertension, Pacemaker/ICD, Myocardial Infarction , Congestive Heart Failure, Atrial Fibrillation, Deep Vein Thrombosis, Bleeding Disorders Respiratory History Of: Denies: COPD, Asthma, Bronchitis, Pneumonia, Pulmonary Embolism GI/ History Of: Denies: Gastroesophageal Reflux, Ulcer, Gastrointestinal Bleed, Gall Bladder Disease, Kidney Stones, Diverticulitis, Renal Disease, Urosepsis Neurological History Of: Denies: TIA, CVA, Dementia, Seizures, Migraine Psychological History Of: Denies: Anxiety, Depression, Bipolar Disorder, Schizophrenia, Post Traumatic Stress Disorder Cancer History Of: Denies: Lung Cancer, Colorectal Cancer, Breast Cancer, Prostate Cancer, Cervical Cancer Other History Of: Negative For: HIV, Hepatitis B, Hepatitis C, Anticoagulant Therapy - Surgical History Surgical History: Yes Surgery Procedure, Year, and Place: D & C - 2012. LOW ABD PROCEDURE - UTERINE BLEEDING - EMBOLIZATION - ( CLEARED FOR MRI - NO METAL PER DR BUENO - REVIEWED RECENT CT ABD/PELVIS) - Family History Known Family History: Positive: Hypertension Negative: Cardiac Disease - Social History Occupation: Employed Full-time Alcohol Use: None Substance Use Type: None, Prescribed Smoking Status (MU): Never Smoked Tobacco Review of Systems Constitutional: Negative Skin: Negative Eyes: Negative ENT: Negative Respiratory: Negative Cardiovascular: Negative Gastrointestinal: Abdominal Pain All Other Systems Reviewed And Are Negative: Yes Physical Exam Triage Information Reviewed: Yes Appearance: No Pain Distress, Other: - The patient appears sleepy. She is moving around the exam table on her own, but prefers to lay on her right side. She does not appear to be in distress--no grimacing, moaning, etc. Vital Signs: Initial Vital Signs Temp 97.8 F 12/17/16 16:56 Pulse 94 12/17/16 16:56 Resp 18 12/17/16 16:56 BP 121/61 12/17/16 16:56 Pulse Ox 100 12/17/16 16:56 Vital Signs Reviewed: Yes Eyes: Positive: Conjunctiva Clear. Negative: Discharge ENT: Positive: Hearing grossly normal. Negative: Pharyngeal erythema, Nasal congestion, Nasal drainage, TM bulging, TM dull, TM red, Tonsillar swelling, Tonsillar exudate Dental: Negative: Gross Decay/Caries @, Dental Fracture @ Neck: Positive: Supple, Nontender, No Lymphadenopathy. Negative: Nuchal Rigidity Respiratory: Positive: Chest non-tender, Lungs clear, No respiratory distress, No accessory muscle use Cardiovascular: Positive: RRR, No Murmur Abdomen Description: Positive: No Organomegaly, Soft. Negative: Nontender - She has some tenderness to palpation of the right upper quadrant., Guarding Musculoskeletal: Positive: Strength Intact, ROM Intact Neurological: Positive: Alert, Muscle Tone Normal Psychological: Positive: Age Appropriate Behavior, Consolable Skin: Negative: rashes, breakdown Abd Pain Female Course/Dx - Course Course Of Treatment: Patient was told that I did not see any gallstones on the CT scan (10-04-16) nor the MRI (10-10-16) or the ultrasound (10-07-16) and therefore can't be giving her Percocet for biliary colic when there are no gallstones or gallbladder abnormality. She was told that if her pain is that bad, she would need more of a workup. She stormed out even before we could give her, her paperwork saying, "I ain't going to sign shit." - Differential Dx/Diagnosis Differential Diagnosis: Constipation, Diverticulitis, Gall Bladder Disease Provider Diagnoses: Abdominal pain. Request for narcotic Discharge - Discharge Plan Condition: Stable Disposition: HOME Additional Instructions: Patient left against medical advice.
== END 2016-12-17 20:40 | disposition left against medical advice (07) ==
LOC: UCEAST 16:42
DX: R10.11 Right upper quadrant pain (principal); Z88.5 Allergy status to narcotic agent
CPT/HCPCS: 81003; 99212; G0463

== ENCOUNTER 2016-12-17 21:18 | Emergency (ER) | payer SELFPAY ==
[2016-12-17] MEDS ORDERED: Omeprazole CAP* 20 MG PO ONE (22:58)
--- NOTE | 2016-12-17 23:24 | ED ---
alton Odell Timothy, scribed for Freeman Rachel MD on 12/17/16 at 2301 . GI/ HPI - HPI Summary HPI Summary: Cynthia Bartlett is a 31 yo female presenting to [facility] with 8/10 RUQ pain since 1100 this morning. Pt has a Hx of gallstones and is scheduled for surgery in 2 weeks. Pt was Rx Oxycodone, but states she did not self-medicate as her medication does not help her pain. Her MHx includes gallstones, D&C 2013, claustrophobia. pt had neg mri,ct and u/s for gallstones in past 2 months - History of Current Complaint Chief Complaint: EDAbdPain Time Seen by Provider: 12/17/16 22:53 Stated Complaint: GALL BLADDER FLARE UP Hx Obtained From: Patient Onset/Duration: Started Hours Ago, Still Present Timing: Constant Severity: Moderate Current Severity: Moderate Pain Intensity: 8 Location of Pain: RUQ Associated Signs and Symptoms: Positive: Abdominal Pain - Allergy/Home Medications Allergies/Adverse Reactions: Allergies Allergy/AdvReac Type Severity Reaction Status Date / Time Shellfish Allergy Allergy Intermediate Hives/Diff. Verified 12/17/16 17:02 Breathing/I tching Hydrocodone Allergy Hives Verified 12/17/16 17:02 PMH/Surg Hx/FS Hx/Imm Hx Endocrine/Hematology History: Denies: Hx Anticoagulant Therapy, Hx Diabetes, Hx Thyroid Disease Cardiovascular History: Denies: Hx Congestive Heart Failure, Hx Deep Vein Thrombosis, Hx Hypertension , Hx Myocardial Infarction, Hx Pacemaker/ICD Respiratory History: Denies: Hx Asthma, Hx Chronic Obstructive Pulmonary Disease (COPD), Hx Lung Cancer, Hx Pneumonia, Hx Pulmonary Embolism GI History: Denies: Hx Gall Bladder Disease, Hx Gastrointestinal Bleed, Hx Ulcer, Hx Urosepsis History: Denies: Hx Kidney Stones, Hx Renal Disease Sensory History: Denies: Hx Hearing Aid Neurological History: Denies: Hx Dementia, Hx Migraine, Hx Seizures, Hx Transient Ischemic Attacks (TIA) Psychiatric History: Denies: Hx Anxiety, Hx Depression, Hx Panic Disorder, Hx Schizophrenia, Hx Bipolar Disorder - Surgical History Surgery Procedure, Year, and Place: D & C - 2012. LOW ABD PROCEDURE - UTERINE BLEEDING - EMBOLIZATION - ( CLEARED FOR MRI - NO METAL PER DR BUENO - REVIEWED RECENT CT ABD/PELVIS) Infectious Disease History: No Infectious Disease History: Denies: Hx Hepatitis, Hx Human Immunodeficiency Virus (HIV), History Other Infectious Disease, Traveled Outside the [place] in Last 30 Days - Family History Known Family History: Positive: Hypertension Negative: Cardiac Disease - Social History Alcohol Use: None Hx Substance Use: No Substance Use Type: Reports: None, Prescribed Hx Tobacco Use: No Smoking Status (MU): Never Smoked Tobacco Review of Systems Constitutional: Negative Eyes: Negative ENT: Negative Cardiovascular: Negative Respiratory: Negative Positive: Abdominal Pain - "gallbladder flare" Genitourinary: Negative Musculoskeletal: Negative Skin: Negative Neurological: Negative Psychological: Normal All Other Systems Reviewed And Are Negative: Yes Physical Exam Triage Information Reviewed: Yes Vital Signs On Initial Exam: Initial Vitals Temp Pulse Resp BP Pulse Ox 98.0 F 80 14 124/67 100 12/17/16 21:26 12/17/16 21:26 12/17/16 21:26 12/17/16 21:26 12/17/16 21:26 Vital Signs Reviewed: Yes Appearance: Positive: Well-Appearing, No Pain Distress Skin: Positive: Warm Head/Face: Positive: Normal Head/Face Inspection Eyes: Positive: BRET ENT: Positive: Hearing grossly normal Neck: Positive: Supple Respiratory/Lung Sounds: Positive: Clear to Auscultation, Breath Sounds Present Cardiovascular: Positive: RRR Abdomen Description: Positive: Nontender, No Organomegaly, Soft Bowel Sounds: Positive: Present Musculoskeletal: Positive: Strength/ROM Intact Neurological: Positive: Sensory/Motor Intact, Alert, Oriented to Person Place, Time Psychiatric: Positive: Affect/Mood Appropriate Diagnostics - Vital Signs Vital Signs Temp Pulse Resp BP Pulse Ox 12/17/16 21:28 98.0 F 80 15 124/67 100 12/17/16 21:26 98.0 F 80 14 124/67 100 - Laboratory Result Diagrams: 12/17/16 22:50 12/17/16 22:50 Lab Statement: Any lab studies that have been ordered have been reviewed, and results considered in the medical decision making process. Re-Evaluation - Re-Evaluation First Eval Comment: labs all wnl, pt requesting stronger narcotics, no objective evidence of gb disease, appears comfortable, explained to pt can continue present meds, but would need to contact pcp in am for further pain meds GIGU Course/Dx - Course Assessment/Plan: Cynthia Bartlett is a 31 yo female presenting to [facility] with 8/10 RUQ abd pain since this morning. In the ED she was given Prilosec. After clinical examination and review of her lab work, she will be discharged home with biliary colic and appropriate instructions. Prior to receiving discharge paperwork, Pt left the emergency department AMA. - Diagnoses Differential Diagnoses - Female: Other - biliary colic Provider Diagnoses: Biliary colic Discharge - Discharge Plan Condition: Stable Disposition: HOME Patient Education Materials: Biliary Colic (ED) Referrals: Romeo Valenzuela MD [Primary Care Provider] - Johnson Kebede MD [Medical Doctor] - 2 Days Additional Instructions: Please follow up with Dr. Kebede regarding your visit to the emergency department today. Return to the emergency department with any new or recurring symptoms. The documentation as recorded by the alton jung Timothy accurately reflects the service I personally performed and the decisions made by me, Freeman Rachel MD.
[2016-12-17 23:49] LABS: Hematocrit 37 % (35-47); Hemoglobin 12.1 g/dl (12.0-16.0); Mean Corpuscular HGB Conc 33 g/dl (31-36); Mean Corpuscular Hemoglobin 28 pg (27-31); Mean Corpuscular Volume 86 fL (80-97); Mean Platelet Volume 9 um3 (7.4-10.4); Red Blood Count 4.32 10^6/ul (4.0-5.4); Red Cell Distribution Width 13 % (10.5-15)
[2016-12-18] LABS: BUN/Creatinine Ratio 12.7 (8-20); Calcium 8.9 mg/dL (8.6-10.3); EGFR African American 141.7 (>60); EGFR Non-African American 110.2 (>60); Globulin 3.3 g/dL (2-4); Potassium 3.5 mmol/L (3.5-5.0); Total Bilirubin 0.4 mg/dL (0.2-1.0); Total Protein 7.3 g/dL (6.4-8.9)
[2016-12-18] MEDS ORDERED: Ketorolac INJ* 60 MG/2 ML VIAL IM ONE (00:09)
[2016-12-18 00:24] VITALS: BP 101/60
== END 2016-12-18 00:22 | disposition home or self-care (01) ==
LOC: ED 21:18
DX: K80.50 Calculus of bile duct without cholangitis or cholecystitis without obstruction (principal); R10.11 Right upper quadrant pain
CPT/HCPCS: 36415; 80053; 85025; 96372; 99283; A9270-GY; J1885

== ENCOUNTER 2018-06-02 18:04 | Emergency (ER) | payer OTHER ==
[2018-06-02] MEDS ORDERED: NS 0.9% 1000 ML* 1,000 ML IV ONE (23:46)
[2018-06-02] MEDS ORDERED: Ondansetron INJ* 2 MG/ML VIAL IV ONE (23:46)
[2018-06-02] MEDS ORDERED: Morphine VIAL* 10 MG/ML 1 ML VIAL IV ONE (23:46)
[2018-06-03 00:17] LABS: ABS Basophils 0 10^3/ul (0-0.2); ABS Eosinophils 0.2 10^3/ul (0-0.6); ABS Lymphocytes 2.9 10^3/ul (1.0-4.8); ABS Monocytes 0.6 10^3/ul (0-0.8); ABS Neutrophils 4.2 10^3/ul (1.5-7.7); ABS Nucleated RBC 0 10^3/ul; Eosinophil % 2.5 % (0-6); Hematocrit 35 % (35-47); Hemoglobin 11.6 g/dl (12.0-16.0); Lymphocyte % 36.7 % (25-47); Mean Corpuscular HGB Conc 33 g/dl (31-36); Mean Corpuscular Hemoglobin 28 pg (27-31); Mean Corpuscular Volume 86 fL (80-97); Mean Platelet Volume 9.6 um3 (7.4-10.4); Nucleated Red Blood Cells % 0.2; Platelet Count 244 10^3/ul (150-450); Red Blood Count 4.12 10^6/ul (4.00-5.40); Red Cell Distribution Width 13 % (10.5-15); White Blood Count 7.9 10^3/ul (3.5-10.8)
[2018-06-03 00:18] LABS: EGFR Non-African American 101.4 (>60)
[2018-06-03] MEDS ORDERED: Morphine INJ* 4 MG/ML 1 ML SYRINGE (NEW SYRINGE VERSION) ONE (00:19)
--- NOTE | 2018-06-03 01:01 | RAD ---
EXAM: CT Abdomen and Pelvis Without Intravenous Contrast CLINICAL HISTORY: 33 years old, female; Pain; Abdominal pain; Additional info: Rt flank pain, rlq pain TECHNIQUE: Axial computed tomography images of the abdomen and pelvis without intravenous contrast. All CT scans at this facility use at least one of these dose optimization techniques: automated exposure control; mA and/or kV adjustment per patient size (includes targeted exams where dose is matched to clinical indication); or iterative reconstruction. Coronal and sagittal reformatted images were created and reviewed. COMPARISON: PEL/TRANS US PELVIS/TRANSVAG 10/04/2016 7:48 PM FINDINGS: Lung bases: Unremarkable. No mass. No consolidation. ABDOMEN: Liver: The liver is borderline enlarged. There is a low density mass in the left lobe of the liver measuring approximately 2.8 cm. There is a subtle low density mass in the right lobe of the liver. The margins are poorly defined but measures approximately 4.5 cm in size. Gallbladder and bile ducts: Unremarkable. No calcified stones. No ductal dilation. Pancreas: Unremarkable. No ductal dilation. Spleen: Unremarkable. No splenomegaly. Adrenals: Unremarkable. No mass. Kidneys and ureters: There is a 1.5 mm nonobstructing right renal calculus. Stomach and bowel: Unremarkable. No obstruction. No mucosal thickening. PELVIS: Appendix: The appendix is normal in appearance. Bladder: Unremarkable. No stones. Reproductive: Unremarkable as visualized. ABDOMEN and PELVIS: Intraperitoneal space: Unremarkable. No free air. No significant fluid collection. Bones/joints: No acute fracture. No dislocation. Soft tissues: There is a small fat containing umbilical hernia noted. Vasculature: Unremarkable. No abdominal aortic aneurysm. Lymph nodes: Unremarkable. No enlarged lymph nodes. IMPRESSION: Nonobstructing right renal calculus. 2 hepatic mass lesions. Followup MRI with hemangioma protocol is suggested. Small fat containing umbilical hernia.
[2018-06-03] MEDS ORDERED: HYDROcodone/ACETAMIN 5-325 MG* 1 TAB PO ONE (01:10)
--- NOTE | 2018-06-03 01:12 | ED ---
Back Pain - HPI Summary HPI Summary: Patient complains of right flank pain radiating to right lower quadrant starting last night, associated with increased urinary frequency. History of kidney stones. Flank pain described as, constant, sharp. Denies fever, cough, sore throat, CP, N/V/D, change in BM. Medical history is none. Abdominal/ pelvic CT surgical history is none. - History of Current Complaint Chief Complaint: EDAbdPain Stated Complaint: CRAMPS/ABD PAIN Time Seen by Provider: 06/02/18 23:17 Hx Obtained From: Patient Hx Last Menstrual Period: November 25, 2016 Onset/Duration: Sudden Onset Onset/Duration: Started Hours Ago Timing: Constant Back Pain Location: Radiates To Severity Initially: Severe Severity Currently: Severe Pain Intensity: 9 Pain Scale Used: 0-10 Numeric Character: Sharp Aggravating Symptom(s): Nothing Alleviating Symptom(s): Nothing Associated Signs And Symptoms: Positive: Abdominal Pain, Flank Pain - Allergies/Home Medications Allergies/Adverse Reactions: Allergies Allergy/AdvReac Type Severity Reaction Status Date / Time MS Shellfish Allergy Allergy Intermediate Hives/Diff. Verified 12/17/16 17:02 [Shellfish Allergy] Breathing/I tching MS Hydrocodone [Hydrocodone] Allergy Hives Verified 12/17/16 17:02 PMH/Surg Hx/FS Hx/Imm Hx Endocrine/Hematology History: Denies: Hx Anticoagulant Therapy, Hx Diabetes, Hx Thyroid Disease Cardiovascular History: Denies: Hx Congestive Heart Failure, Hx Deep Vein Thrombosis, Hx Hypertension , Hx Myocardial Infarction, Hx Pacemaker/ICD Respiratory History: Denies: Hx Asthma, Hx Chronic Obstructive Pulmonary Disease (COPD), Hx Lung Cancer, Hx Pneumonia, Hx Pulmonary Embolism GI History: Denies: Hx Gall Bladder Disease, Hx Gastrointestinal Bleed, Hx Ulcer, Hx Urosepsis History: Denies: Hx Kidney Stones, Hx Renal Disease Sensory History: Denies: Hx Hearing Aid Neurological History: Denies: Hx Dementia, Hx Migraine, Hx Seizures, Hx Transient Ischemic Attacks (TIA) Psychiatric History: Denies: Hx Anxiety, Hx Depression, Hx Panic Disorder, Hx Schizophrenia, Hx Bipolar Disorder - Surgical History Surgery Procedure, Year, and Place: D & C - 2012. LOW ABD PROCEDURE - UTERINE BLEEDING - EMBOLIZATION - ( CLEARED FOR MRI - NO METAL PER DR BUENO - REVIEWED RECENT CT ABD/PELVIS) Infectious Disease History: No Infectious Disease History: Denies: Hx Hepatitis, Hx Human Immunodeficiency Virus (HIV), History Other Infectious Disease, Traveled Outside the [place] in Last 30 Days - Family History Known Family History: Positive: Hypertension Negative: Cardiac Disease - Social History Alcohol Use: None Hx Substance Use: No Substance Use Type: Reports: None Hx Tobacco Use: No Smoking Status (MU): Never Smoked Tobacco Review of Systems Constitutional: Negative Eyes: Negative ENT: Negative Cardiovascular: Negative Respiratory: Negative Positive: Abdominal Pain Positive: frequency, flank pain Musculoskeletal: Negative Skin: Negative Neurological: Negative Psychological: Normal All Other Systems Reviewed And Are Negative: Yes Physical Exam Triage Information Reviewed: Yes Vital Signs On Initial Exam: Initial Vitals Temp Pulse Resp BP Pulse Ox 98.5 F 82 16 126/78 100 06/02/18 18:45 06/02/18 18:45 06/02/18 18:45 06/02/18 18:45 06/02/18 18:45 Vital Signs Reviewed: Yes Appearance: Positive: Well-Appearing Skin: Positive: Warm Head/Face: Positive: Normal Head/Face Inspection Eyes: Positive: Normal Neck: Positive: Supple Respiratory/Lung Sounds: Positive: Clear to Auscultation Cardiovascular: Positive: Normal Abdomen Description: Negative: CVA Tenderness (R), CVA Tenderness (L), [place] Tenderness Musculoskeletal: Positive: Normal Neurological: Positive: Normal Psychiatric: Positive: Normal AVPU Assessment: Alert - [place] Coma Scale Best Eye Response: 4 - Spontaneous Best Motor Response: 6 - Obeys Commands Best Verbal Response: 5 - Oriented Coma Scale Total: 15 Diagnostics - Vital Signs Vital Signs Temp Pulse Resp BP Pulse Ox 06/03/18 01:04 63 123/88 99 06/03/18 01:00 65 98 06/03/18 00:37 86 100 06/03/18 00:36 79 124/80 100 06/03/18 00:21 16 06/02/18 23:34 82 130/92 06/02/18 20:35 98.1 F 98 16 115/79 100 06/02/18 18:45 98.5 F 82 16 126/78 100 - Laboratory Lab Results: Lab Results 06/02/18 06/02/18 06/02/18 Range/Units 23:40 23:40 23:40 WBC 7.9 (3.5-10.8) 10^3/ul RBC 4.12 (4.00-5.40) 10^6/ul Hgb 11.6 L (12.0-16.0) g/dl Hct 35 (35-47) % MCV 86 (80-97) fL MCH 28 (27-31) pg MCHC 33 (31-36) g/dl RDW 13 (10.5-15) % Plt Count 244 (150-450) 10^3/ul MPV 9.6 (7.4-10.4) um3 Neut % (Auto) 53.2 (38-83) % Lymph % (Auto) 36.7 (25-47) % Saline % (Auto) 7.2 H (0-7) % Eos % (Auto) 2.5 (0-6) % Baso % (Auto) 0.4 (0-2) % Absolute Neuts (auto) 4.2 (1.5-7.7) 10^3/ul Absolute Lymphs (auto) 2.9 (1.0-4.8) 10^3/ul Absolute Monos (auto) 0.6 (0-0.8) 10^3/ul Absolute Eos (auto) 0.2 (0-0.6) 10^3/ul Absolute Basos (auto) 0 (0-0.2) 10^3/ul Absolute Nucleated RBC 0 10^3/ul Nucleated RBC % 0.2 Sodium 139 (135-145) mmol/L Potassium 3.7 (3.5-5.0) mmol/L Chloride 105 (101-111) mmol/L Carbon Dioxide 28 (22-32) mmol/L Anion Gap 6 (2-11) mmol/L BUN 11 (6-24) mg/dL Creatinine 0.67 (0.51-0.95) mg/dL Est GFR ( Amer) 122.7 (>60) Est GFR (Non-Af Amer) 101.4 (>60) BUN/Creatinine Ratio 16.4 (8-20) Glucose 105 H (70-100) mg/dL Lactic Acid 0.8 (0.5-2.0) mmol/L Calcium 9.1 (8.6-10.3) mg/dL Total Bilirubin 0.30 (0.2-1.0) mg/dL AST 14 (13-39) U/L ALT 10 (7-52) U/L Alkaline Phosphatase 85 (34-104) U/L C-Reactive Protein 14.70 H (<8.01) mg/L Total Protein 7.5 (6.4-8.9) g/dL Albumin 4.3 (3.2-5.2) g/dL Globulin 3.2 (2-4) g/dL Albumin/Globulin Ratio 1.3 (1-3) Lipase 36 (11.0-82.0) U/L Beta HCG, Quant < 0.60 mIU/mL Result Diagrams: 06/02/18 23:40 06/02/18 23:40 Lab Statement: Any lab studies that have been ordered have been reviewed, and results considered in the medical decision making process. - CT ab/pel w/o CT Interpretation: Positive (See Comments) - Right renal calculus CT Interpretation Completed By: Radiologist Back Pain Course/Dx - Course Course Of Treatment: Patient complains of right flank pain radiating to right lower quadrant starting last night, associated with increased urinary frequency. History of kidney stones. Flank pain described as, constant, sharp. Denies fever, cough, sore throat, CP, N/V/D, change in BM. Medical history is none. Abdominal/pelvic surgical history is none. Vital signs within normal limits. Labs unremarkable. CT abdomen and pelvis without contrast positive for right renal calculus. 1.5 mm stone. Rx for hydrocodone and pass stone at home - Diagnoses Provider Diagnoses: Kidney stone Discharge - Sign-Out/Discharge Documenting (check all that apply): Patient Departure - Discharge Plan Condition: Stable Disposition: HOME Prescriptions: HYDROcodone/ACETAMIN 5-325 MG* [[place] 5-325 TAB*] 1 tab PO TID 3 Days #9 tab MDD 3 tabs Patient Education Materials: Kidney Stones (ED) Referrals: Romeo Valenzuela MD [Primary Care Provider] - Additional Instructions: Use strainer to strain urine. Return to the ED for any new or worsening symptoms - Billing Disposition and Condition Condition: STABLE Disposition: Home
[2018-06-03 01:26] LABS: Urine Appearance Cloudy; Urine Blood 2+ (Negative); Urine Color Yellow; Urine Ketones Negative (Negative); Urine Protein 1+(30 mg/dL) (Negative); Urine Specific Gravity 1.025 (1.010-1.030); Urine Urobilinogen Negative (Negative)
[2018-06-03 01:29] LABS: Urine Red Blood Cell 3+(>10/hpf) (Absent); Urine White Blood Cell Trace(0-5/hpf) (Absent)
[2018-06-03 02:38] VITALS: BP 116/75
== END 2018-06-03 02:40 | disposition home or self-care (01) ==
LOC: ED 18:04
DX: N20.0 Calculus of kidney (principal); K76.9 Liver disease, unspecified; K42.9 Umbilical hernia without obstruction or gangrene; Z87.442 Personal history of urinary calculi; Z88.5 Allergy status to narcotic agent
CPT/HCPCS: 36415; 74176; 80053; 81003; 81015; 83605; 83690; 84702; 85025; 86140; 87077; 87086; 96374; 96375; 99283; J2270; J2405

== ENCOUNTER 2018-06-14 17:55 | Emergency (ER) | payer OTHER ==
[2018-06-14 18:32] VITALS: BP 129/85
--- NOTE | 2018-06-14 19:32 | UC ---
Upper Extremity HPI - HPI Summary HPI Summary: 33 y/o female presents to the urgent care c/o Requests Tramadol 100mg TID Rx. Can't see Dr. Valenzuela for 3 wks. Takes the medication for right arm pain/Arthritis - History of Current Complaint Chief Complaint: UCMedRefill Stated Complaint: ARM PAIN Time Seen by Provider: 06/14/18 19:30 Hx Obtained From: Patient Hx Last Menstrual Period: 06/03/18 ?: No Onset/Duration: Gradual Onset, Lasting Weeks - 1 week, Still Present, Worse Since - today Severity Initially: Mild Severity Currently: Moderate Pain Intensity: 8 Pain Scale Used: 0-10 Numeric Location Of Pain: Is Discrete @ - left elbow, Radiates To - upper arm Character: Dull, Aching Aggravating Factor(s): Movement, Lifting Alleviating Factor(s): OTC Meds, Rest Associated Signs And Symptoms: Positive: Numbness/Tingling - mild at times Related History: Dominant Hand Right - Risk Factors Non-Orthopedic Risk Factor: Negative DVT Risk Factors: Negative Septic Arthritis Risk Factor: Negative - Allergies/Home Medications Allergies/Adverse Reactions: Allergies Allergy/AdvReac Type Severity Reaction Status Date / Time MS Shellfish Allergy Allergy Intermediate Hives/Diff. Verified 12/17/16 17:02 [Shellfish Allergy] Breathing/I tching MS Hydrocodone [Hydrocodone] Allergy Hives Verified 12/17/16 17:02 Home Medications: Home Medications clonazePAM TAB(*) [Klonopin TAB(*)] 1 tab PO TID 06/14/18 [History Confirmed 04/24] PMH/Surg Hx/FS Hx/Imm Hx Previously Healthy: Yes Other Endocrine History: Osteoarthritis Other History Of: Negative For: HIV, Hepatitis B, Hepatitis C, Anticoagulant Therapy - Surgical History Surgical History: Yes Surgery Procedure, Year, and Place: D & C - 2013. LOW ABD PROCEDURE - UTERINE BLEEDING - EMBOLIZATION - ( CLEARED FOR MRI - NO METAL PER DR BUENO - REVIEWED RECENT CT ABD/PELVIS) - Family History Known Family History: Positive: Hypertension Negative: Cardiac Disease - Social History Occupation: Employed Full-time Lives: With Family Alcohol Use: None Substance Use Type: None Smoking Status (MU): Never Smoked Tobacco Review of Systems Constitutional: Negative Skin: Negative Eyes: Negative ENT: Negative Respiratory: Negative Cardiovascular: Negative Gastrointestinal: Negative Genitourinary: Negative Motor: Negative Neurovascular: Negative Musculoskeletal: Decreased ROM - RT elbow, Other: - RT elbow pain Neurological: Numbness - at times of the RT forearm Psychological: Negative Is Patient Immunocompromised?: No All Other Systems Reviewed And Are Negative: Yes Physical Exam - Summary Physical Exam Summary: Vital signs Reviewed: Yes Appearance: Well-Appearing, No Pain Distress, Well-Nourished - female sitting in the examining table w/o any apparent distress Vital Signs Reviewed: Yes General: well developed, well nourished female sitting in the examining table w/ o any apparent distress. Eyes: Positive: Conjunctiva Clear - PERRLA, EOMI, ENT: Positive: Normal ENT inspection, Hearing grossly normal, Pharynx normal, TMs normal - B/L, Uvula midline Neck: Positive: Supple, Nontender, No Lymphadenopathy Respiratory: Positive: Chest non-tender, Lungs clear, Normal breath sounds, No respiratory distress, No accessory muscle use Cardiovascular: Positive: RRR, No Murmur, Pulses Normal, Brisk Capillary Refill Abdomen Description: Positive: Nontender, No Organomegaly, Soft. Negative: CVA Tenderness (R), CVA Tenderness (L) Bowel Sounds: Positive: Present Musculoskeletal: Positive: Strength Intact, Rt Elbow: The L elbow is with mild deformity on the lateral side when compared to the R elbow. No obvious surface trauma, ecchymosis, mild soft tissue swelling. Point tenderness to palpation of the lateral or medial epicondyle, olecranon,and radial head. No epicondylar or axillary lymphadenopathy. Decreased ROM due to pain. Muscle strength. Intact motor and sensation of ulnar, median, and radial nerves. Neurological: Positive: Alert, Muscle Tone Normal Psychological Exam: Normal Skin Exam: Normal Triage Information Reviewed: Yes Vital Signs: Initial Vital Signs Temp 97.9 F 06/14/18 18:29 Pulse 83 06/14/18 18:29 Resp 18 06/14/18 18:29 BP 129/85 06/14/18 18:29 Pulse Ox 100 06/14/18 18:29 Upper Extremity Course/Dx - Differential Dx/Diagnosis Differential Diagnosis/HQI/PQRI: Arthritis, Contusion, Fracture (Closed), Strain , Sprain Provider Diagnoses: 1- Left elbow pain. 2- Osteoarthritis Discharge - Sign-Out/Discharge Documenting (check all that apply): Patient Departure - D/c home All imaging exams completed and their final reports reviewed: No Studies - Discharge Plan Condition: Stable Disposition: HOME Prescriptions: traMADol TAB* [Ultram*] 50 mg PO Q8H PRN #9 tab MDD 400mg/day PRN Reason: Pain Patient Education Materials: Osteoarthritis (ED) Referrals: Romeo Valenzuela MD [Primary Care Provider] - 3 Days [facility] [Provider Group] - 1 Week Additional Instructions: 1-Please take Tramadol PO as directed after meals to alleviate pain and swelling. 2-Please apply ice, keep your elbow immobilized with the shoulder sling for 3- 4 days and then resume movement slowly 3- Please f/u with [facility] from [facility] 1 week is not improvement of symptoms for further evaluation and treatment. - Billing Disposition and Condition Condition: STABLE Disposition: Home
== END 2018-06-14 20:05 | disposition home or self-care (01) ==
LOC: UCEAST 17:55
DX: M19.022 Primary osteoarthritis, left elbow (principal); Z88.6 Allergy status to analgesic agent
CPT/HCPCS: 99212; G0463

== ENCOUNTER 2018-08-21 18:59 | Emergency (ER) | payer OTHER ==
[2018-08-21] MEDS ORDERED: Benzonatate CAP* 100 MG PO ONE (19:30)
--- NOTE | 2018-08-21 19:49 | ED ---
Influenza-Like Illness - HPI Summary HPI Summary: Patient complains of productive cough, chest pain with cough 3 weeks. Cough is worse at night. Also complains of anxiety about being sick, history of anxiety. Denies fever, ORR, neck stiffness, ear pain, sore throat, SOB, N/V/D, abdominal pain, change in urine, change in BM, body aches. Medical history is none. - History of Current Complaint Chief Complaint: EDFluSymptoms Time Seen by Provider: 08/21/18 19:24 Hx Obtained From: Patient Onset/Duration: Gradual Onset Severity: Moderate Associated Signs & Symptoms: Cough, Nasal Congestion - Allergy/Home Medications Allergies/Adverse Reactions: Allergies Allergy/AdvReac Type Severity Reaction Status Date / Time shellfish derived Allergy Intermediate Hives/Diff. Verified 07/29/18 03:38 Breathing/I tching hydrocodone AdvReac Intermediate Hives Verified 07/29/18 03:38 PMH/Surg Hx/FS Hx/Imm Hx Endocrine/Hematology History: Denies: Hx Anticoagulant Therapy, Hx Diabetes, Hx Thyroid Disease Cardiovascular History: Denies: Hx Congestive Heart Failure, Hx Deep Vein Thrombosis, Hx Hypertension , Hx Myocardial Infarction, Hx Pacemaker/ICD Respiratory History: Denies: Hx Asthma, Hx Chronic Obstructive Pulmonary Disease (COPD), Hx Lung Cancer, Hx Pneumonia, Hx Pulmonary Embolism GI History: Denies: Hx Gall Bladder Disease, Hx Gastrointestinal Bleed, Hx Ulcer, Hx Urosepsis History: Denies: Hx Kidney Stones, Hx Renal Disease Sensory History: Denies: Hx Hearing Aid Neurological History: Denies: Hx Dementia, Hx Migraine, Hx Seizures, Hx Transient Ischemic Attacks (TIA) Psychiatric History: Denies: Hx Anxiety, Hx Depression, Hx Panic Disorder, Hx Schizophrenia, Hx Bipolar Disorder - Surgical History Surgery Procedure, Year, and Place: D & C - 2013. LOW ABD PROCEDURE - UTERINE BLEEDING - EMBOLIZATION - ( CLEARED FOR MRI - NO METAL PER DR BUENO - REVIEWED RECENT CT ABD/PELVIS) - Immunization History Date of Influenza Vaccine: declines Infectious Disease History: No Infectious Disease History: Denies: Hx Hepatitis, Hx Human Immunodeficiency Virus (HIV), History Other Infectious Disease, Traveled Outside the [place] in Last 30 Days - Family History Known Family History: Positive: Hypertension Negative: Cardiac Disease - Social History Alcohol Use: None Hx Substance Use: No Substance Use Type: Reports: None Hx Tobacco Use: No Smoking Status (MU): Never Smoked Tobacco Review of Systems Constitutional: Negative Eyes: Negative Positive: Nasal Discharge Positive: Chest Pain Positive: Cough Gastrointestinal: Negative Genitourinary: Negative Musculoskeletal: Negative Skin: Negative Neurological: Negative Psychological: Normal All Other Systems Reviewed And Are Negative: Yes Physical Exam Triage Information Reviewed: Yes Vital Signs On Initial Exam: Initial Vitals Temp Pulse Resp BP Pulse Ox 97.9 F 88 14 124/78 100 08/21/18 19:17 08/21/18 19:17 08/21/18 19:17 08/21/18 19:17 08/21/18 19:17 Vital Signs Reviewed: Yes Appearance: Positive: Well-Appearing Skin: Positive: Warm Head/Face: Positive: Normal Head/Face Inspection Eyes: Positive: Normal ENT: Positive: Normal ENT inspection Neck: Positive: Supple Respiratory/Lung Sounds: Positive: Clear to Auscultation Cardiovascular: Positive: Normal Abdomen Description: Positive: Nontender Musculoskeletal: Positive: Normal Neurological: Positive: Normal Psychiatric: Positive: Normal AVPU Assessment: Alert - Mal Coma Scale Best Eye Response: 4 - Spontaneous Best Motor Response: 6 - Obeys Commands Best Verbal Response: 5 - Oriented Coma Scale Total: 15 Diagnostics - Vital Signs Vital Signs Temp Pulse Resp BP Pulse Ox 08/21/18 19:35 79 110/69 100 08/21/18 19:17 97.9 F 82 14 124/78 100 - Laboratory Lab Statement: Any lab studies that have been ordered have been reviewed, and results considered in the medical decision making process. Flu Symptom Course/Dx - Course Course Of Treatment: Patient complains of productive cough, chest pain with cough 3 weeks. Cough is worse at night. Also complains of anxiety about being sick, history of anxiety. Denies fever, ORR, neck stiffness, ear pain, sore throat, SOB, N/V/D, abdominal pain, change in urine, change in BM, body aches. Medical history is none. Physical exam unremarkable. Vital signs within normal limits. X-ray has possible lower right lobe infiltrate. Symptoms for 3 weeks. Trial of antibiotics and Tessalon Perles - Diagnoses Provider Diagnoses: Pneumonia Discharge - Sign-Out/Discharge Documenting (check all that apply): Patient Departure - Discharge Plan Condition: Stable Disposition: HOME Prescriptions: Azithromycin 250 mg PO DAILY 4 Days #4 tablet Benzonatate CAP* [Tessalon 100 MG CAP*] 200 mg PO TID PRN 5 Days #30 cap PRN Reason: Cough Patient Education Materials: Pneumonia (ED) Referrals: Romeo Valenzuela MD [Primary Care Provider] - Additional Instructions: Take antibiotics as directed. Follow-up with primary care. Return to the ED for any new or worsening symptoms - Billing Disposition and Condition Condition: STABLE Disposition: Home
[2018-08-21] MEDS ORDERED: Azithromycin TAB* 250 MG PO ONE (20:38)
[2018-08-21] MEDS ORDERED: hydrOXYzine HCL TAB* 50 MG PO ONE (20:42)
[2018-08-21 21:01] VITALS: BP 123/85
== END 2018-08-21 21:02 | disposition home or self-care (01) ==
LOC: ED 18:59
DX: J18.9 Pneumonia, unspecified organism (principal)
CPT/HCPCS: 71046; 99283; A9270-GY

== ENCOUNTER 2018-08-25 19:54 | Emergency (ER) | payer OTHER ==
--- NOTE | 2018-08-25 20:38 | ED ---
Respiratory - HPI Summary HPI Summary: Patient complains of productive cough, chest and back pain with cough 2 weeks. Seen here 08/21 diagnosed with possible pneumonia, given azithromycin, Margarette Brown. States no change in symptoms after completing medication. Continues to feel fine other than cough, cough worse at night. Radiology next day read of x-ray negative for disease. Patient continues to deny ORR, ear pain , neck stiffness, fever, sore throat, SOB, N/V/D, abdominal pain, change in urine, change in BM. Medical history is none. - History of Current Complaint Chief Complaint: EDUpperRespComplaint Stated Complaint: RT SIDE CHEST PAIN/COUGH/BACK PAIN Time Seen by Provider: 08/25/18 20:17 Hx Obtained From: Patient Onset/Duration: Gradual Onset Timing: Intermittent Episodes Lasting: Initial Severity: Moderate Current Severity: Moderate Pain Intensity: 6 Character: Cough (Productive) Sputum Amount: Small Sputum Color: Yellow Aggravating Factor(s): Deep Breaths Alleviating Factor(s): Nothing Associated Signs and Symptoms: Chest Pain with Cough - Allergy/Home Medications Allergies/Adverse Reactions: Allergies Allergy/AdvReac Type Severity Reaction Status Date / Time shellfish derived Allergy Intermediate Hives/Diff. Verified 08/25/18 19:59 Breathing/I tching hydrocodone AdvReac Intermediate Hives Verified 08/25/18 19:59 PMH/Surg Hx/FS Hx/Imm Hx Endocrine/Hematology History: Denies: Hx Anticoagulant Therapy, Hx Diabetes, Hx Thyroid Disease Cardiovascular History: Denies: Hx Congestive Heart Failure, Hx Deep Vein Thrombosis, Hx Hypertension , Hx Myocardial Infarction, Hx Pacemaker/ICD Respiratory History: Denies: Hx Asthma, Hx Chronic Obstructive Pulmonary Disease (COPD), Hx Lung Cancer, Hx Pneumonia, Hx Pulmonary Embolism GI History: Denies: Hx Gall Bladder Disease, Hx Gastrointestinal Bleed, Hx Ulcer, Hx Urosepsis History: Denies: Hx Kidney Stones, Hx Renal Disease Sensory History: Denies: Hx Hearing Aid Neurological History: Denies: Hx Dementia, Hx Migraine, Hx Seizures, Hx Transient Ischemic Attacks (TIA) Psychiatric History: Denies: Hx Anxiety, Hx Depression, Hx Panic Disorder, Hx Schizophrenia, Hx Bipolar Disorder - Surgical History Surgery Procedure, Year, and Place: D & C - 2012. LOW ABD PROCEDURE - UTERINE BLEEDING - EMBOLIZATION - ( CLEARED FOR MRI - NO METAL PER DR BUENO - REVIEWED RECENT CT ABD/PELVIS) - Immunization History Date of Influenza Vaccine: declines Infectious Disease History: No Infectious Disease History: Denies: Hx Hepatitis, Hx Human Immunodeficiency Virus (HIV), History Other Infectious Disease, Traveled Outside the [place] in Last 30 Days - Family History Known Family History: Positive: Hypertension Negative: Cardiac Disease - Social History Alcohol Use: None Hx Substance Use: No Substance Use Type: Reports: None Hx Tobacco Use: No Smoking Status (MU): Never Smoked Tobacco Review of Systems Constitutional: Negative Eyes: Negative ENT: Negative Positive: Chest Pain Positive: Cough Gastrointestinal: Negative Genitourinary: Negative Musculoskeletal: Negative Skin: Negative Neurological: Negative Psychological: Normal All Other Systems Reviewed And Are Negative: Yes Physical Exam Triage Information Reviewed: Yes Vital Signs On Initial Exam: Initial Vitals Temp Pulse Resp BP Pulse Ox 98.0 F 86 16 144/91 100 08/25/18 19:55 08/25/18 19:55 08/25/18 19:55 08/25/18 19:55 08/25/18 19:55 Vital Signs Reviewed: Yes Appearance: Positive: Well-Appearing Skin: Positive: Warm Head/Face: Positive: Normal Head/Face Inspection Eyes: Positive: Normal ENT: Positive: Pharyngeal erythema, TMs normal, Uvula midline. Negative: Tonsillar swelling, Tonsillar exudate, Trismus, Muffled voice, Hoarse voice Neck: Positive: Supple Respiratory/Lung Sounds: Positive: Clear to Auscultation Cardiovascular: Positive: Normal Abdomen Description: Positive: Nontender Musculoskeletal: Positive: Normal Neurological: Positive: Normal Psychiatric: Positive: Normal AVPU Assessment: Alert - Mal Coma Scale Best Eye Response: 4 - Spontaneous Best Motor Response: 6 - Obeys Commands Best Verbal Response: 5 - Oriented Coma Scale Total: 15 Diagnostics - Vital Signs Vital Signs Temp Pulse Resp BP Pulse Ox 08/25/18 19:55 98.0 F 86 16 144/91 100 - Laboratory Lab Statement: Any lab studies that have been ordered have been reviewed, and results considered in the medical decision making process. Disposition - Course Course Of Treatment: Patient complains of productive cough, chest and back pain with cough 2 weeks. Seen here 08/21 diagnosed with possible pneumonia, given azithromycin, Margarette Brown. States no change in symptoms after completing medication. Continues to feel fine other than cough, cough worse at night. Radiology next day read of x-ray negative for disease. Patient continues to deny ORR, ear pain, neck stiffness, fever, sore throat, SOB, N/V/D, abdominal pain, change in urine, change in BM. Medical history is none. Physical exam unremarkable. No signs within normal limits. Just completed a round of antibiotics. Likely viral syndrome. Patient states no success with Tessalon. Trial of Robitussin-AC for cough. Patient denies hydrocodone allergy. States only known allergy is to shrimp. - Diagnoses Provider Diagnoses: Viral syndrome Discharge - Sign-Out/Discharge Documenting (check all that apply): Patient Departure - Discharge Plan Condition: Stable Disposition: HOME Prescriptions: guaiFENesin/CODIEN 100MG-10MG* [Robitussin AC 100Mg-10Mg*] 10 ml PO Q4H PRN 4 Days #240 udc MDD 60ml PRN Reason: Cough Patient Education Materials: Viral Syndrome (ED) Referrals: Romeo Valenzuela MD [Primary Care Provider] - Additional Instructions: Take ibuprofen for cough related chest and back pain. Get plenty of rest. Drink plenty of fluids. Follow-up with primary care. Return to the ED for any new or worsening symptoms - Billing Disposition and Condition Condition: STABLE Disposition: Home
[2018-08-25] MEDS ORDERED: guaiFENesin/CODIEN 100MG-10MG* 5 ML UDC PO ONE (20:45)
[2018-08-25 21:02] VITALS: BP 140/92
== END 2018-08-25 21:02 | disposition home or self-care (01) ==
LOC: ED 19:54
DX: B34.9 Viral infection, unspecified (principal)
CPT/HCPCS: 99282; A9270-GY